=== PATIENT | female | born 1940 | race African-American/Black ===

== ENCOUNTER → 2017-03-04 | Outpatient (CLI) | payer MEDICARE, MEDICAID ==
--- NOTE | 2017-03-04 11:16 | RADIOLOGY REPORT (SQ) ---
EXAM DESCRIPTION: KUB COMPLETED DATE/TIME: 03/04/2017 11:05 am REASON FOR STUDY: CALCULUS OF KIDNEY N20.0 CALCULUS OF KIDNEY COMPARISON: 01/04/2016 NUMBER OF VIEWS: One view. TECHNIQUE: Supine radiographic image of the abdomen acquired. LIMITATIONS: None. FINDINGS: BOWEL GAS PATTERN: Normal bowel gas pattern. No dilated loops. CALCIFICATIONS: Calcifications overlie the left kidney, particularly the lower pole calices. No defi nite ureteral calculus is seen. SOFT TISSUES: No gross mass or suggestion of organomegaly. HARDWARE: None in the abdomen. BONES: Levoscoliosis and lumbar degenerative changes are present. OTHER: No other significant finding. IMPRESSION: Left nephrolithiasis with no evidence of ureteral calculus. Findings as described. TECHNICAL DOCUMENTATION: JOB ID: [id number] [email or web address]- All Rights Reserved
== END ==
LOC: OD 10:42
PROVIDERS: ATTEND Urology
DX: N20.0 Calculus of kidney (principal)
CPT/HCPCS: 74000

== ENCOUNTER 2017-08-01 16:51 | Inpatient (IN) | payer MEDICARE, MEDICAID ==
[2017-08-01] MEDS ORDERED: FUROSEMIDE INJ/PF 40 MG/4 ML SDV IV ONE (20:00)
[2017-08-01] MEDS ORDERED: IPRATROPIUM/ALBUTEROL 0.5-2.5 MG/3 ML AMPUL NEB PRN (20:20)
--- NOTE | 2017-08-01 20:20 | PDOC H&P ---
History of Present Illness Admission Date/PCP: 08/01/17 16:51 TAMIE DEL CASTILLO MD Patient complains of: Worsening leg swelling and difficulty with breathing History of Present Illness: RHETT HORAN is a 76 year old female patient known to my practice who presented to the office again today with complaint of worsening bilateral leg swelling and difficulty with breathing. Patient denied any chest pain but reported productive coughing of yellowish brown sputum, wheezing, fatigue, excessive daytime sleepiness, and snoring. Patient denied any fever or chills. She reported worsening of shortness of breath with exertion. She claimed stoppage of cigarette smoking few days ago. There is associated poor appetite and oral intake, running nose and sneezing, generalized aches and pain, and light headedness. Her initial evaluation in the office did revealed pulse oximetry on room air at 73%, HR 99/min with pain rating at 10/10. Also, patient appeared toxic and ill looking. In view of her recurrent office presentation and evaluation findings, she was advised hospitalization for further evaluation and management. Past Medical History Cardiac Medical History: Reports: Hyperlipidema, Hypertension Denies: Coronary Artery Disease - HIGH CHOLESTEROL, Myocardial Infarction Pulmonary Medical History: Reports: Chronic Obstructive Pulmonary Disease (COPD) Denies: Asthma, Bronchitis, Pneumonia Neurological Medical History: Denies: Seizures Musculoskeltal Medical History: Reports: Arthritis - OSTEO Hematology: Denies: Anemia Social History Smoking Status: Former Smoker Frequency of Alcohol Use: None Hx Recreational Drug Use: No Drugs: None Hx Prescription Drug Abuse: No - Advance Directive Resuscitation Status: Do Not Resuscitate - I had extensive discussion with patient at bedside in concert with family and nursing staff. Patient expressed wish to be a DNR status at this time. Family History Family History: Reviewed & Not Pertinent Parental Family History Reviewed: Yes Children Family History Reviewed: Yes Sibling(s) Family History Reviewed.: Yes Medication/Allergy Home Medications: Fluticasone/Vilanterol [Breo Ellipta 100-25 Mcg INH] 1 puff IH DAILY 08/01/17 Furosemide [Lasix 20 mg Tablet] 20 mg PO QAM 08/01/17 Oxybutynin Chloride [Ditropan 5 Mg Tablet] 5 mg PO BID 08/01/17 Allergies/Adverse Reactions: No Known Allergies Allergy (Verified 09/20/15 10:59) Review of Systems Constitutional: PRESENT: anorexia, fatigue, weakness Eyes: ABSENT: visual disturbances Ears: ABSENT: hearing changes Nose, Mouth, and Throat: ABSENT: as per HPI, headache(s), mouth pain, sore throat, vertigo, other Cardiovascular: PRESENT: dyspnea on exertion, edema Respiratory: PRESENT: cough, dyspnea, sputum Gastrointestinal: PRESENT: other - poor appetite and oral intake Genitourinary: ABSENT: dysuria, hematuria Musculoskeletal: ABSENT: joint swelling Integumentary: ABSENT: rash, wounds Neurological: PRESENT: dizziness - lightheadedness, weakness - generalized Psychiatric: ABSENT: anxiety, depression, homidical ideation, suicidal ideation Endocrine: ABSENT: cold intolerance, heat intolerance, polydipsia, polyuria Hematologic/Lymphatic: PRESENT: easy bruising Allergic/Immunologic: PRESENT: seasonal rhinorrhea Physical Exam Vital Signs: Intake & Output 07/31/17 08/01/17 08/02/17 06:59 06:59 06:59 Weight 60.9 kg General appearance: PRESENT: cooperative, disheveled - and acutely ill looking Head exam: PRESENT: atraumatic, normocephalic Eye exam: PRESENT: conjunctiva pink, EOMI, PERRLA. ABSENT: scleral icterus Mouth exam: PRESENT: dry mucosa Teeth exam: ABSENT: dental caries, dental tenderness, edentulous, poor dentation , other Throat exam: ABSENT: post pharyngeal erythema, tonsillar erythema, tonsillar exudate, tonsillogmegaly, other Neck exam: PRESENT: full ROM. ABSENT: carotid bruit, JVD, lymphadenopathy, thyromegaly Respiratory exam: PRESENT: accessory muscle use, decreased breath sounds - lower lung zone bilaterally, rhonchi, unlabored Cardiovascular exam: PRESENT: RRR. ABSENT: diastolic murmur, rubs, systolic murmur Pulses: PRESENT: normal dorsalis pedis pul, +2 pedal pulses bilateral Vascular exam: PRESENT: normal capillary refill. ABSENT: pallor GI/Abdominal exam: PRESENT: normal bowel sounds, soft. ABSENT: distended, guarding, mass, organolmegaly, rebound, tenderness Rectal exam: PRESENT: deferred Extremities exam: PRESENT: pedal edema - right >> left Musculoskeletal exam: PRESENT: deformity - multiple joints involvement with arthritis Neurological exam: PRESENT: alert, awake, oriented to person, oriented to place , oriented to time, oriented to situation, CN II-XII grossly intact. ABSENT: motor sensory deficit Psychiatric exam: PRESENT: appropriate affect, normal mood. ABSENT: homicidal ideation, suicidal ideation Skin exam: PRESENT: dry Assessment & Plan - Diagnosis (1) Acute systolic CHF (congestive heart failure) Is this a current diagnosis for this admission?: Yes Plan: See admitting attending physician orders. (2) COPD (chronic obstructive pulmonary disease) Qualifiers: COPD type: unspecified COPD Qualified Code(s): J44.9 - Chronic obstructive pulmonary disease, unspecified Is this a current diagnosis for this admission?: Yes Plan: See admitting attending physician orders. (3) Severe hypoxemia Is this a current diagnosis for this admission?: Yes Plan: See admitting attending physician orders. (4) HTN (hypertension) Qualifiers: Hypertension type: essential hypertension Qualified Code(s): I10 - Essential (primary) hypertension Is this a current diagnosis for this admission?: Yes Plan: See admitting attending physician orders. (5) HLD (hyperlipidemia) Qualifiers: Hyperlipidemia type: unspecified Qualified Code(s): E78.5 - Hyperlipidemia , unspecified Is this a current diagnosis for this admission?: Yes Plan: See admitting attending physician orders. (6) Osteoarthritis involving multiple joints on both sides of body Is this a current diagnosis for this admission?: Yes Plan: See admitting attending physician orders. - Time Time Spent: 50 to 70 Minutes Medications reviewed and adjusted accordingly: Yes Anticipated discharge: Home with Homehealth Within: Other - Inpatient Certification Based on my medical assessment, after consideration of the patient's comorbidities, presenting symptoms, or acuity I expect that the services needed warrant INPATIENT care.: Yes I certify that my determination is in accordance with my understanding of Medicare's requirements for reasonable and necessary INPATIENT services [42 CFR 412.3e].: Yes Medical Necessity: Need Close Monitoring Due to Risk of Patient Decompensation, Need For Continuous Telemetry Monitoring, Need for Nebulizer Therapy and Monitoring of Response, Need for IV Antibiotics, Risk of Complication if Not Cared For in Hospital Post Hospital Care: D/C Inspector [employer] Reconditioning Documentation - Plan Summary Plan Summary: See admitting attending physician orders.
[2017-08-01 20:24] LABS: ABSOLUTE LYMPHOCYTES (AUTO) 1.1 10^3/uL (0.5-4.7); ABSOLUTE MONOCYTES (AUTO) 0.4 10^3/uL (0.1-1.4); ABSOLUTE NEUT (AUTO) 6.3 10^3/uL (1.7-8.2); BASOPHILS % (AUTO) 0.4 % (0-2); EOSINOPHILS % (AUTO) 0.4 % (0-6); HEMATOCRIT 43.3 % (36.0-47.0); HEMOGLOBIN 14.4 g/dL (12.0-15.5); HGB HCT DIFFERENCE -0.1; LYMPHOCYTES % (AUTO) 14.4 % (13-45); MEAN CORPUSCULAR HEMOGLOBIN 28.4 pg (27.0-33.4); MEAN CORPUSCULAR HGB CONC 33.3 g/dL (32.0-36.0); MEAN CORPUSCULAR VOLUME 85 fl (80-97); MONOCYTES % (AUTO) 5.3 % (3-13); RED BLOOD COUNT 5.08 10^6/uL (3.72-5.28); RED CELL DISTRIBUTION WIDTH 19.9 % (11.5-14.0); SEGMENTED NEUTROPHILS % (AUTO) 79.5 % (42-78); WHITE BLOOD COUNT 7.9 10^3/uL (4.0-10.5)
[2017-08-01 20:46] LABS: ALANINE AMINOTRANSFERASE 31 U/L (9-52); ALBUMIN 3.1 g/dL (3.5-5.0); ALKALINE PHOSPHATASE 98 U/L (38-126); ANION GAP 12 (5-19); ASPARTATE AMINO TRANSFERASE 43 U/L (14-36); BILIRUBIN,DIRECT 1.1 mg/dL (0.0-0.4); BILIRUBIN,TOTAL 1.6 mg/dL (0.2-1.3); BLOOD UREA NITROGEN 17 mg/dL (7-20); CALCIUM 8.7 mg/dL (8.4-10.2); CARBON DIOXIDE 26 mmol/L (22-30); CHLORIDE 98 mmol/L (98-107); CREATINE KINASE 89 U/L (30-135); CREATININE RESULT 0.96 mg/dL (0.52-1.25); GLUCOSE 127 mg/dL (75-110); POTASSIUM 3.8 mmol/L (3.6-5.0); SODIUM 136.4 mmol/L (137-145); TOTAL PROTEIN 6.8 g/dL (6.3-8.2)
[2017-08-01 20:57] LABS: TROPONIN I 0.078 ng/mL
[2017-08-01] MEDS ORDERED: LIDOCAINE 2% INJ-PF (100 MG/5 ML) SYRINGE ONE (21:38)
--- NOTE | 2017-08-01 23:14 | EKG REPORT ---
SEVERITY:- ABNORMAL ECG - SINUS RHYTHM PROBABLE RIGHT VENTRICULAR HYPERTROPHY NONSPECIFIC ST-T CHANGES- INFERIOR LEADS : Confirmed by: Stevie Olivares MD 01-Aug-2017 23:14:08
[2017-08-02] MEDS ORDERED: LIDOCAINE 2% INJ-PF (100 MG/5 ML) SYRINGE ONE (00:27)
[2017-08-02] MEDS: METHYLPREDNISOLONE INJ 125 MG/2 ML SDV IV SCH ×4 (01:05→22:20)
--- NOTE | 2017-08-02 01:36 | RADIOLOGY REPORT (SQ) ---
EXAM DESCRIPTION: CHEST SINGLE VIEW COMPLETED DATE/TIME: 08/02/2017 1:04 am REASON FOR STUDY: POSSIBLE PULM EMBOLISM. Central line placement. COMPARISON: Chest x-ray 09/07/2013. EXAM PARAMETERS: NUMBER OF VIEWS: One view. TECHNIQUE: Single frontal radiographic view of the chest acquired. RADIATION DOSE: NA LIMITATIONS: None. FINDINGS: LUNGS AND PLEURA: There are small bilateral pleural effusions and bibasilar airspace opaci ties, right more than left. No pneumothorax. Hyperlucent lungs, suggestive of emphysema. MEDIASTINUM AND HILAR STRUCTURES: No masses. Contour normal. HEART AND VASCULAR STRUCTURES: The heart is enlarged. There is central vascular congestion. BONES: Degenerative changes in the spine. HARDWARE: Right IJ central line with the tip overlying the region of the SVC. IMPRESSION: No pneumothorax status post central line placement. Cardiomegaly and central vascular congestion. Small bilateral pleural effusions and bibasilar airspace opacities, may represent atelectasis or pneu monia. Emphysema. TECHNICAL DOCUMENTATION: JOB ID: [id number] [employer]- All Rights Reserved
[2017-08-02] MEDS: LEVOFLOXACIN 500 MG/D5W RTU 500 MG/100 ML RTUPB IV SCH ×2 (01:49→23:25)
--- NOTE | 2017-08-02 02:33 | OPERATIVE REPORT E ---
Operative Report NAME: RHETT HORAN : 1940 AGE: 76Y DATE OF SURGERY: 08/02/2017 ROOM: 431 PREOPERATIVE DIAGNOSIS: Poor peripheral veins for IV access and needed a central line. POSTOPERATIVE DIAGNOSIS: Poor peripheral veins for IV access and needed a central line. PROCEDURE PERFORMED: Placement of right internal jugular vein triple lumen catheter. SURGEON: GURINDER CAMACHO M.D. ANESTHESIA: Local. INDICATION: This is a 76-year-old female with severe COPD and noted to have poor veins for IV access. DESCRIPTION OF PROCEDURE: Patient was placed in Trendelenburg position, and the right neck prepped and draped in the usual sterile fashion. With the use of ultrasound guidance, the right internal jugular vein was then identified. Local anesthesia was then infiltrated on the skin over the internal jugular vein. The right internal jugular vein was then punctured and guidewire passed through the needle, close to the area of superior vena cava. The needle was removed and the puncture site dilated, and a triple lumen catheter inserted through the guidewire in the direction of the superior vena cava to a distance of about 15 cm. Three ports of the catheter were then irrigated nicely with saline and sprayed blood easily. Next, the catheter was then anchored to the skin with 3-0 silk, and Biopatch placed at the insertion site, and a transparent dressing placed over the Biopatch and catheter. A chest x-ray was then obtained and noted the catheter is right into the area of the superior vena cava with no evidence of pneumothorax. The patient tolerated the procedure well. DICTATING PHYSICIAN: GURINDER CAMACHO M.D. [id number] PHY#: [id number] ID: [id number] JOB#: [id number] ACCT: [id number] cc:GURINDER CAMACHO M.D. >
[2017-08-02 03:02] LABS: CREATINE KINASE MB 2.38 ng/mL (<4.55); TROPONIN I 0.082 ng/mL
--- NOTE | 2017-08-02 04:24 | RADIOLOGY REPORT (SQ) ---
EXAM DESCRIPTION: CTA CHEST COMPLETED DATE/TIME: 08/02/2017 4:00 am REASON FOR STUDY: Shortness of breath COMPARISON: Chest x-ray 08/02/2017. TECHNIQUE: CT scan of the chest performed using helical scanning technique with dynamic intravenous contrast injection. Images reviewed with lung, soft tissue and bone windows. Reconstructed coronal and sagittal MPR images reviewed. Additional 3 dimensional post-processing performed to develop Maximal Intensity Projection images (VT P). All images stored on PACS. All CT scanners at this facility use dose modulation, iterative reconstruction, and/or weight based d osing when appropriate to reduce radiation dose to as low as reasonably achievable (ALARA). [facility]: Dose Right [facility]: CareDose [facility]: Dose Right [facility]: Teradose 4D [facility]: Smart [employer] CONTRAST TYPE AND DOSE: contrast/concentration: Isovue 370.00 mg/ml; Total Contrast Delivered: 100.0 ml; Total Saline Delivered: 60.0 ml Contrast bolus optimized for the pulmonary arteries. Not diagnostic for the aorta. RENAL FUNCTION: Creatinine 0.96 RADIATION DOSE: . LIMITATIONS: The patient was unable to raise her arms for the exam. There is motion artifact. FINDINGS: LUNGS AND PLEURA: Heterogeneous mass at the medial right lower lobe measuring 3.7 x 3.7 cm . There is a moderate right-sided pleural effusion and small left-sided pleural effusion. There are bibasilar airspace opacities. Bilateral emphysematous changes are noted. AORTA AND GREAT VESSELS: No thoracic aortic aneurysm. Contrast bolus not optimized for the aorta. I rregular ulcerative plaque in the descending thoracic aorta. The main pulmonary artery is dilated. HEART: No pericardial effusion. The heart is enlarged. Coronary arteries calcifications are noted. PULMONARY ARTERIES: No emboli visualized in the main pulmonary arteries or the segmental branches. HILAR AND MEDIASTINAL STRUCTURES: Right hilar lymph node measuring 17 mm in short axis. Right paratr acheal lymph node measuring 12 mm in short axis. HARDWARE: Right IJ central line with the tip at the SVC. Small amount of subcutaneous emphysema lio cent to the insertion site in the right lower neck. UPPER ABDOMEN: There is reflux of intravenous contrast into the IVC and the hepatic veins. Small eloisa unt of ascites in the visualized upper abdomen. Limited exam. THYROID AND OTHER SOFT TISSUES: The visualized thyroid gland is unremarkable. There is diffuse subcu taneous edema. BONES: Multilevel degenerative changes in the spine. 3D MIPS: Confirm above findings. IMPRESSION: 1. No pulmonary emboli. 2. Cardiomegaly. Dilated main pulmonary artery, may be seen with pulmonary arterial hypertension. Reflux of intravenous contrast into the IVC and the hepatic veins, suggestive of right heart failure. Irregular ulcerative plaque in the descending thoracic aorta. 3. Heterogeneous mass at the right lower lobe, worrisome for malignancy. Right hilar and mediastina l adenopathy. Further evaluation with PET/ CT recommended. 4. Bilateral pleural effusions, right more than left. 5. Bilateral airspace opacities, may represent atelectasis or pneumonia. 6. Emphysema. 7. Small abdominal ascites. Diffuse subcutaneous edema. COMMENT: Quality ID # [id number]: Final reports with documentation of one or more dose reduction techniques (e.g., Automated exposure control, adjustment of the mA and/or kV according to patient size, use of iterative reconstruction technique) TECHNICAL DOCUMENTATION: JOB ID: [id number] [place]-[id number] 2010 [employer]- All Rights Reserved
[2017-08-02] MEDS: LANSOPRAZOLE 30 MG TAB.RAP.DR PO SCH (05:31)
[2017-08-02] MEDS ORDERED: (PENDING PHARMACY ID) (Fluticasone/Vilanterol [Breo Ellipta 100-25 Mcg Inh] 1 PUFF) IH SCH (10:00)
[2017-08-02] MEDS ORDERED: ENOXAPARIN SODIUM INJ 40 MG/0.4 ML DISP.SYRIN SUBCUT SCH (10:00)
[2017-08-02 10:23] LABS: CREATINE KINASE MB 2.77 ng/mL (<4.55); TROPONIN I 0.067 ng/mL
[2017-08-02] MEDS: FUROSEMIDE 20 MG TABLET PO SCH (11:40)
[2017-08-02] MEDS: OXYBUTYNIN CHLORIDE 5 MG TABLET PO SCH ×2 (11:42→18:57)
--- NOTE | 2017-08-02 16:09 | XCELERA REPORT ---
[address] [address] Transthoracic Echocardiogram Report Name: RHETT HORAN Age: 76 yrs Gender: Female : 1940 Patient Status: Inpatient Patient Location: [address] [place] [address] Study Date: 08/02/2017 02:05 PM Height: 62 in Weight: 134 lb BSA: 1.6 m2 Procedure: A two-dimensional transthoracic echocardiogram with color flow and Doppler was performed. Study Quality: Fair. Reason For Study: SOB, Leg swelling ( EDEMA} History: SOB, Leg swelling ( EDEMA}. Ordering Physician: TAMIE DEL CASTILLO Performed By: Yocasta Mcbride Interpretation Summary The left ventricle is normal in size. There is mild concentric left ventricular hypertrophy. LV EF is 60% Left ventricular systolic function is normal. Doppler measurements suggest normal left ventricular diastolic function The left ventricular wall motion is normal. There is no thrombus. The right ventricle is moderate to severely dilated. The right ventricular systolic function is moderate to severely reduced. There is no mitral valve stenosis. There is no mitral regurgitation noted. There is no evidence of mitral valve prolapse. There is no aortic valve stenosis There is no LVOT obstruction. No aortic regurgitation is present. There is no tricuspid stenosis. There is a severe amount of tricuspid regurgitation There is servere pulmonary hypertension by echo RVSP is 100 to 105 mm of Hg ,with RA mean of 10 to 15. There is no pulmonic valvular stenosis. There is a trace amount of pulmonic regurgitation Trace pericardial effusion behind RA. MMode/2D Measurements & Calculations RVDd: 3.6 cm LVIDd: 2.7 cm FS: 32.4 % Ao root diam: 3.1 cm IVSd: 1.2 cm LVIDs: 1.8 cm EDV(Teich): 26.0 ml LVPWd: 1.2 cm ESV(Teich): 9.7 ml Ao root area: 7.6 cm2 EF(Teich): 62.8 % LA dimension: 2.4 cm Doppler Measurements & Calculations MV E max libra: MV P1/2t max libra: Ao V2 max: LV V1 max P.5 cm/sec 75.5 cm/sec 107.2 cm/sec 3.9 mmHg MV A max libra: MV P1/2t: 35.5 msec Ao max PG: LV V1 max: 40.5 cm/sec 4.6 mmHg 98.2 cm/sec MV E/A: 1.8 MVA(P1/2t): 6.2 cm2 MV dec slope: 622.6 cm/sec2 PA V2 max: TR max libra: 64.2 cm/sec 472.5 cm/sec PA max PG: TR max P.3 mmHg 1.6 mmHg Left Ventricle The left ventricle is normal in size. There is mild concentric left ventricular hypertrophy. LV EF is 60%. Left ventricular systolic function is normal. Doppler measurements suggest normal left ventricular diastolic function. The left ventricular wall motion is normal. There is no thrombus. Right Ventricle The right ventricle is moderate to severely dilated. The right ventricular systolic function is moderate to severely reduced. Atria The right atrium is moderate to severely dilated. The left atrial size is normal. Mitral Valve There is no evidence of mitral valve prolapse. There is no vegetation seen on the mitral valve. There is no mitral valve stenosis. There is no mitral regurgitation noted. Aortic Valve There is no aortic valvular vegetation. There is no aortic valve stenosis. There is no LVOT obstruction. No aortic regurgitation is present. Tricuspid Valve There is no tricuspid stenosis. There is a severe amount of tricuspid regurgitation. There is servere pulmonary hypertension by echo. RVSP is 100 to 105 mm of Hg ,with RA mean of 10 to 15. Pulmonic Valve There is no pulmonic valvular stenosis. There is a trace amount of pulmonic regurgitation. Great Vessels The aortic root is not well visualized but is probably normal size. Effusions Trace pericardial effusion behind RA. : TAMIE DEL CASTILLO > Becki Villasenor
--- NOTE | 2017-08-02 18:12 | PDOC PROGRESS REPORT ---
Subjective Progress Note for:: 08/02/17 Subjective:: Patient reported improvement in continence but continue to experience shortness of breath with low 80"s pulse oximetry reading on supplemental oxygen. Denied chest pain. No abdominal; pain, nausea, or vomiting. Appetite and oral intake remain poor. No fever or chills. Reason For Visit: CHF WITH HYPOXEMIA Physical Exam Vital Signs: Temp Pulse Resp BP Pulse Ox 97.3 F 92 19 95/57 L 90 L 08/02/17 16:04 08/02/17 16:04 08/02/17 16:04 08/02/17 16:04 08/02/17 16:04 Intake & Output 08/01/17 08/02/17 08/03/17 06:59 06:59 06:59 Intake Total 350 480 Balance 350 480 Weight 60.9 kg General appearance: PRESENT: cooperative, mild distress Head exam: PRESENT: atraumatic, normocephalic Eye exam: PRESENT: conjunctiva pink, EOMI, PERRLA. ABSENT: scleral icterus Respiratory exam: PRESENT: crackles - scattered bilaterally, decreased breath sounds - at lung bases Cardiovascular exam: PRESENT: RRR. ABSENT: diastolic murmur, rubs, systolic murmur Vascular exam: PRESENT: normal capillary refill. ABSENT: pallor GI/Abdominal exam: PRESENT: normal bowel sounds, soft. ABSENT: distended, guarding, mass, organolmegaly, rebound, tenderness Rectal exam: PRESENT: deferred Extremities exam: PRESENT: pedal edema - right >> left with some degree of comparative improvement. Musculoskeletal exam: PRESENT: deformity - related to multiple jpint involvement with artritis Neurological exam: PRESENT: alert, awake, oriented to person, oriented to place , oriented to time, oriented to situation, CN II-XII grossly intact. ABSENT: motor sensory deficit Psychiatric exam: PRESENT: appropriate affect, normal mood. ABSENT: homicidal ideation, suicidal ideation Skin exam: PRESENT: dry, intact, warm. ABSENT: cyanosis, rash Results Laboratory Results: 08/01/17 20:15 08/01/17 20:15 08/01/17 08/01/17 20:15 20:15 WBC 7.9 RBC 5.08 Hgb 14.4 Hct 43.3 MCV 85 MCH 28.4 MCHC 33.3 RDW 19.9 H Plt Count 184 Seg Neutrophils % 79.5 H Lymphocytes % 14.4 Monocytes % 5.3 Eosinophils % 0.4 Basophils % 0.4 Absolute Neutrophils 6.3 Absolute Lymphocytes 1.1 Absolute Monocytes 0.4 Absolute Eosinophils 0.0 Absolute Basophils 0.0 Sodium 136.4 L Potassium 3.8 Chloride 98 Carbon Dioxide 26 Anion Gap 12 BUN 17 Creatinine 0.96 Est GFR ( Amer) > 60 Est GFR (Non-Af Amer) 57 L Glucose 127 H Calcium 8.7 Total Bilirubin 1.6 H AST 43 H ALT 31 Alkaline Phosphatase 98 Total Protein 6.8 Albumin 3.1 L 08/01/17 08/01/17 08/01/17 20:15 20:15 20:15 Creatine Kinase 89 CK-MB (CK-2) 3.00 Troponin I 0.078 NT-Pro-B Natriuret Pep 31398 H 08/02/17 08/02/17 08/02/17 02:24 02:24 08:56 Creatine Kinase 77 83 CK-MB (CK-2) 2.38 Troponin I 0.082 NT-Pro-B Natriuret Pep 08/02/17 08:56 Creatine Kinase CK-MB (CK-2) 2.77 Troponin I 0.067 NT-Pro-B Natriuret Pep Impressions: Chest X-Ray 08/02/17 00:00 IMPRESSION: No pneumothorax status post central line placement. Cardiomegaly and central vascular congestion. Small bilateral pleural effusions and bibasilar airspace opacities, may represent atelectasis or pneumonia. Emphysema. Chest/Abdomen CTA 08/02/17 00:00 IMPRESSION: 1. No pulmonary emboli. 2. Cardiomegaly. Dilated main pulmonary artery, may be seen with pulmonary arterial hypertension. Reflux of intravenous contrast into the IVC and the hepatic veins, suggestive of right heart failure. Irregular ulcerative plaque in the descending thoracic aorta. 3. Heterogeneous mass at the right lower lobe, worrisome for malignancy. Right hilar and mediastinal adenopathy. Further evaluation with PET/ CT recommended. 4. Bilateral pleural effusions, right more than left. 5. Bilateral airspace opacities, may represent atelectasis or pneumonia. 6. Emphysema. 7. Small abdominal ascites. Diffuse subcutaneous edema. Assessment & Plan - Diagnosis (1) Acute systolic CHF (congestive heart failure) Is this a current diagnosis for this admission?: Yes (2) COPD (chronic obstructive pulmonary disease) Qualifiers: COPD type: unspecified COPD Qualified Code(s): J44.9 - Chronic obstructive pulmonary disease, unspecified Is this a current diagnosis for this admission?: Yes (3) Severe hypoxemia Is this a current diagnosis for this admission?: Yes (4) HTN (hypertension) Qualifiers: Hypertension type: essential hypertension Qualified Code(s): I10 - Essential (primary) hypertension Is this a current diagnosis for this admission?: Yes (5) HLD (hyperlipidemia) Qualifiers: Hyperlipidemia type: unspecified Qualified Code(s): E78.5 - Hyperlipidemia , unspecified Is this a current diagnosis for this admission?: Yes (6) Osteoarthritis involving multiple joints on both sides of body Is this a current diagnosis for this admission?: Yes (7) Mass of lower lobe of right lung Is this a current diagnosis for this admission?: Yes Plan: See attending physician orders. (8) Bilateral pleural effusion Is this a current diagnosis for this admission?: Yes Plan: See attending physician orders. - Time Time Spent with patient: 35 or more minutes Medications reviewed and adjusted accordingly: Yes Anticipated discharge: Other Within: Other - Inpatient Certification Based on my medical assessment, after consideration of the patient's comorbidities, presenting symptoms, or acuity I expect that the services needed warrant INPATIENT care.: Yes I certify that my determination is in accordance with my understanding of Medicare's requirements for reasonable and necessary INPATIENT services [42 CFR 412.3e].: Yes Medical Necessity: Need Close Monitoring Due to Risk of Patient Decompensation, Need For Continuous Telemetry Monitoring, Need for Nebulizer Therapy and Monitoring of Response, Need for IV Antibiotics, Risk of Complication if Not Cared For in Hospital Post Hospital Care: D/C Senior Private Client Advisor Documentation - Plan Summary Plan Summary: I had extensive discussion with patient regarding CTA chest findings and possibility of lung cancer in view of cigarette smoking history and advance age. Meanwhile, I will add IV Cefepime to her antibiotic therapy. I will request for right sided thoracentesis with fluid chemistry analysis, culture and cytology. Encouraged compliance with supplemental oxygen usage. Patient remain on DNR status.
[2017-08-02] MEDS: CEFEPIME 1 GM/D5W RTU 1 GM/50 ML RTUPB IV SCH (22:20)
[2017-08-03] MEDS: METHYLPREDNISOLONE INJ 125 MG/2 ML SDV IV SCH ×3 (05:23→21:14)
[2017-08-03] MEDS: LANSOPRAZOLE 30 MG TAB.RAP.DR PO SCH (05:23)
[2017-08-03 06:01] LABS: ABSOLUTE LYMPHOCYTES (AUTO) 0.6 10^3/uL (0.5-4.7); ABSOLUTE MONOCYTES (AUTO) 0.3 10^3/uL (0.1-1.4); ABSOLUTE NEUT (AUTO) 5.1 10^3/uL (1.7-8.2); BASOPHILS % (AUTO) 0.1 % (0-2); HEMATOCRIT 40.3 % (36.0-47.0); HEMOGLOBIN 13.3 g/dL (12.0-15.5); HGB HCT DIFFERENCE -0.4; LYMPHOCYTES % (AUTO) 10.4 % (13-45); MEAN CORPUSCULAR HGB CONC 32.9 g/dL (32.0-36.0); MEAN CORPUSCULAR VOLUME 85 fl (80-97); MONOCYTES % (AUTO) 4.7 % (3-13); RED BLOOD COUNT 4.74 10^6/uL (3.72-5.28); RED CELL DISTRIBUTION WIDTH 19.9 % (11.5-14.0); SEGMENTED NEUTROPHILS % (AUTO) 84.8 % (42-78)
[2017-08-03 06:05] LABS: PROTHROMBIN TIME 19.2 SEC (11.4-15.4)
[2017-08-03 06:26] LABS: ALANINE AMINOTRANSFERASE 32 U/L (9-52); ALKALINE PHOSPHATASE 71 U/L (38-126); ANION GAP 11 (5-19); ASPARTATE AMINO TRANSFERASE 42 U/L (14-36); BILIRUBIN,DIRECT 1.1 mg/dL (0.0-0.4); BILIRUBIN,TOTAL 1.6 mg/dL (0.2-1.3); BLOOD UREA NITROGEN 23 mg/dL (7-20); CALCIUM 8.6 mg/dL (8.4-10.2); CARBON DIOXIDE 27 mmol/L (22-30); CHLORIDE 97 mmol/L (98-107); CREATININE RESULT 1.28 mg/dL (0.52-1.25); GLUCOSE 129 mg/dL (75-110); POTASSIUM 4.1 mmol/L (3.6-5.0); SODIUM 135.3 mmol/L (137-145); TOTAL PROTEIN 6.5 g/dL (6.3-8.2)
[2017-08-03] MEDS: FUROSEMIDE 20 MG TABLET PO SCH (07:37)
[2017-08-03] MEDS: OXYBUTYNIN CHLORIDE 5 MG TABLET PO SCH ×2 (09:07→17:43)
[2017-08-03] MEDS: CEFEPIME 1 GM/D5W RTU 1 GM/50 ML RTUPB IV SCH ×2 (09:07→21:14)
[2017-08-03] MEDS ORDERED: LIDOCAINE 1% INJ-PF (10 MG/ML) 30 ML SDV ONE (12:07)
--- NOTE | 2017-08-03 12:45 | RADIOLOGY REPORT (SQ) ---
EXAM DESCRIPTION: U/S THORACENTESIS WITH IMAGING COMPLETED DATE/TIME: 08/03/2017 12:33 pm REASON FOR STUDY: Bial. pleural effusion with hypoxia (RT. SIDE) COMPARISON: None. LIMITATIONS: None. PROCEDURE: Procedure, risks, benefit, and alternative explained to patient who then gave written con sent. The posterior right chest wall was marked using ultrasound guidance. A time-out was called fo r correct marking verification. Chest prepped and draped using sterile technique. Local anesthesia a chieved using 5 ml of 1% lidocaine injection. A 6fr Safe-T- Centesis set was introduced into the rig ht pleural space. Fluid was aspirated. The catheter was removed and the entry site was covered with sterile bandage. No immediate complications noted. Images acquired during the procedure were stored on PACS. FINDINGS: ENTRY SITE: Right posterior chest wall FLUID VOLUME: 500 cc FLUID ANALYSIS: [place] color OTHER: Fluid sent to the lab for testing. IMPRESSION: SUCCESSFUL THORACENTESIS USING ULTRASOUND GUIDANCE. COMMENT: Patient medication list reviewed: Yes- Quality ID# [id number]:Eligible professional attests to doc umenting in the medical record they obtained, updated, or reviewed the patient's current medications. Quality ID #[id number]: Final reports for procedures using fluoroscopy that document radiation exposure georgina laurence, or exposure time and number of fluorographic images (if radiation exposure indices are not avail able) TECHNICAL DOCUMENTATION: JOB ID: [id number] [employer]- All Rights Reserved
--- NOTE | 2017-08-03 13:14 | RADIOLOGY REPORT (SQ) ---
EXAM DESCRIPTION: CHEST SINGLE VIEW COMPLETED DATE/TIME: 08/03/2017 12:52 pm REASON FOR STUDY: RT THORA COMPARISON: CT angio chest 08/02/2017 AP chest 08/02/2017 EXAM PARAMETERS: NUMBER OF VIEWS: One view. TECHNIQUE: Single frontal radiographic view of the chest acquired. RADIATION DOSE: NA LIMITATIONS: None. FINDINGS: LUNGS AND PLEURA: Mild bibasilar airspace disease likely atelectasis. No pleural effusions or pneumothorax. MEDIASTINUM AND HILAR STRUCTURES: No masses. Contour normal. HEART AND VASCULAR STRUCTURES: No cardiomegaly. Prominent central pulmonary arteries. BONES: Osteoporotic HARDWARE: Right jugular central line has been pulled back, the tip is still in the superior vena cava . OTHER: No other significant finding. IMPRESSION: Right jugular central line has been pulled back, tip of the catheter is in the superior vena cava. Post right thoracentesis. No pneumothorax. Bibasilar atelectasis. TECHNICAL DOCUMENTATION: JOB ID: [id number] [employer]- All Rights Reserved
[2017-08-03 14:20] LABS: FLUID TYPE PLEURAL; STAIN REACTIVITY CHECK ACCEPTABLE
[2017-08-03 14:21] LABS: FLUID APPEARANCE CLOUDY; FLUID RBC DILUENT USED SALINE; FLUID RBC DILUTION FACTOR 20; FLUID RBC SIDE 1 126; FLUID RBC SIDE 2 112; TOTAL RBC SQUARES COUNTED FLD 50
--- NOTE | 2017-08-03 18:05 | PDOC PROGRESS REPORT ---
Subjective Progress Note for:: 08/03/17 Subjective:: She was seen by the bedside, she has right pleural effusion with the mass in the lung suspicious for neoplasm, she had thoracentesis done today over 500 cc of pleural fluid was collected, specimen sent for studies Reason For Visit: CHF WITH HYPOXEMIA Physical Exam Vital Signs: Temp Pulse Resp BP Pulse Ox 97.3 F 87 16 110/66 96 08/03/17 15:14 08/03/17 15:14 08/03/17 15:14 08/03/17 15:14 08/03/17 15:14 Intake & Output 08/02/17 08/03/17 08/04/17 06:59 06:59 06:59 Intake Total 350 877 280 Output Total 200 Balance 350 877 80 Weight 60.9 kg General appearance: PRESENT: mild distress Head exam: PRESENT: atraumatic, normocephalic Eye exam: PRESENT: PERRLA. ABSENT: scleral icterus Ear exam: PRESENT: normal external ear exam Mouth exam: PRESENT: moist, tongue midline Neck exam: PRESENT: full ROM Respiratory exam: PRESENT: crackles, rhonchi Cardiovascular exam: PRESENT: RRR, +S1, +S2 Vascular exam: PRESENT: normal capillary refill GI/Abdominal exam: PRESENT: normal bowel sounds, soft Rectal exam: PRESENT: deferred Neurological exam: PRESENT: alert, awake, oriented to person, oriented to place , oriented to time, oriented to situation, CN II-XII grossly intact Psychiatric exam: PRESENT: appropriate affect, normal mood Skin exam: PRESENT: dry, intact, warm. ABSENT: cyanosis, rash Results Laboratory Results: 08/03/17 05:53 08/03/17 05:53 08/03/17 08/03/17 08/03/17 05:53 05:53 12:10 WBC 6.0 RBC 4.74 Hgb 13.3 Hct 40.3 MCV 85 MCH 28.0 MCHC 32.9 RDW 19.9 H Plt Count 173 Seg Neutrophils % 84.8 H Lymphocytes % 10.4 L Monocytes % 4.7 Eosinophils % 0.0 Basophils % 0.1 Absolute Neutrophils 5.1 Absolute Lymphocytes 0.6 Absolute Monocytes 0.3 Absolute Eosinophils 0.0 Absolute Basophils 0.0 Sodium 135.3 L Potassium 4.1 Chloride 97 L Carbon Dioxide 27 Anion Gap 11 BUN 23 H Creatinine 1.28 H Est GFR ( Amer) 49 L Est GFR (Non-Af Amer) 41 L Glucose 129 H Calcium 8.6 Total Bilirubin 1.6 H AST 42 H ALT 32 Alkaline Phosphatase 71 Total Protein 6.5 Albumin 3.0 L Fluid Type PLEURAL Fluid Source LUNG Fluid Color RED Fluid Appearance CLOUDY Fluid Viscosity LIQUID Fluid WBC 122 Fluid RBC 16822 08/01/17 08/01/17 08/01/17 20:15 20:15 20:15 Creatine Kinase 89 CK-MB (CK-2) 3.00 Troponin I 0.078 NT-Pro-B Natriuret Pep 66469 H 08/02/17 08/02/17 08/02/17 02:24 02:24 08:56 Creatine Kinase 77 83 CK-MB (CK-2) 2.38 Troponin I 0.082 NT-Pro-B Natriuret Pep 08/02/17 08:56 Creatine Kinase CK-MB (CK-2) 2.77 Troponin I 0.067 NT-Pro-B Natriuret Pep Impressions: Chest/Abdomen CTA 08/02/17 00:00 IMPRESSION: 1. No pulmonary emboli. 2. Cardiomegaly. Dilated main pulmonary artery, may be seen with pulmonary arterial hypertension. Reflux of intravenous contrast into the IVC and the hepatic veins, suggestive of right heart failure. Irregular ulcerative plaque in the descending thoracic aorta. 3. Heterogeneous mass at the right lower lobe, worrisome for malignancy. Right hilar and mediastinal adenopathy. Further evaluation with PET/ CT recommended. 4. Bilateral pleural effusions, right more than left. 5. Bilateral airspace opacities, may represent atelectasis or pneumonia. 6. Emphysema. 7. Small abdominal ascites. Diffuse subcutaneous edema. Thoracentesis Ultrasound 08/02/17 18:14 IMPRESSION: SUCCESSFUL THORACENTESIS USING ULTRASOUND GUIDANCE. Assessment & Plan - Diagnosis (1) Acute systolic CHF (congestive heart failure) Is this a current diagnosis for this admission?: Yes (2) COPD (chronic obstructive pulmonary disease) Qualifiers: COPD type: unspecified COPD Qualified Code(s): J44.9 - Chronic obstructive pulmonary disease, unspecified Is this a current diagnosis for this admission?: Yes (3) Severe hypoxemia Is this a current diagnosis for this admission?: Yes (4) HTN (hypertension) Qualifiers: Hypertension type: essential hypertension Qualified Code(s): I10 - Essential (primary) hypertension Is this a current diagnosis for this admission?: Yes (5) HLD (hyperlipidemia) Qualifiers: Hyperlipidemia type: unspecified Qualified Code(s): E78.5 - Hyperlipidemia , unspecified Is this a current diagnosis for this admission?: Yes (6) Osteoarthritis involving multiple joints on both sides of body Is this a current diagnosis for this admission?: Yes (7) Mass of lower lobe of right lung Is this a current diagnosis for this admission?: Yes (8) Bilateral pleural effusion Is this a current diagnosis for this admission?: Yes - Plan Summary Plan Summary: Continue present treatment
--- NOTE | 2017-08-03 22:11 | RADIOLOGY REPORT (SQ) ---
EXAM DESCRIPTION: CHEST SINGLE VIEW COMPLETED DATE/TIME: 08/03/2017 2:42 pm REASON FOR STUDY: 2 S/P RT THORA COMPARISON: 08/03/2017 and 08/02/2017 EXAM PARAMETERS: NUMBER OF VIEWS: One view. TECHNIQUE: Single frontal radiographic view of the chest acquired. RADIATION DOSE: NA LIMITATIONS: None. FINDINGS: LUNGS AND PLEURA: Persistent bibasilar atelectasis. No evidence of re- accumulation of ex trapleural fluid. No new focal consolidation. Pneumothorax. MEDIASTINUM AND HILAR STRUCTURES: No masses. Contour normal. HEART AND VASCULAR STRUCTURES: Stable cardiomediastinal silhouette. BONES: No acute findings. HARDWARE: The right cervical vascular access catheter terminates in the region of the superior vena c jennifer. OTHER: No other significant finding. IMPRESSION: 1. Stable central vascular access catheter. 2. Status post thoracentesis without evidence of re- accumulation or pneumothorax. TECHNICAL DOCUMENTATION: JOB ID: [id number] [employer]- All Rights Reserved
[2017-08-03] MEDS: LEVOFLOXACIN 500 MG/D5W RTU 500 MG/100 ML RTUPB IV SCH (22:26)
[2017-08-04] MEDS: LANSOPRAZOLE 30 MG TAB.RAP.DR PO SCH (05:18)
[2017-08-04] MEDS: METHYLPREDNISOLONE INJ 125 MG/2 ML SDV IV SCH ×3 (05:24→21:28)
[2017-08-04] MEDS: FUROSEMIDE 20 MG TABLET PO SCH (08:21)
[2017-08-04] MEDS: CEFEPIME 1 GM/D5W RTU 1 GM/50 ML RTUPB IV SCH ×2 (11:10→22:53)
[2017-08-04] MEDS: OXYBUTYNIN CHLORIDE 5 MG TABLET PO SCH ×2 (11:10→17:08)
[2017-08-04] MEDS: ENOXAPARIN SODIUM INJ 40 MG/0.4 ML DISP.SYRIN SUBCUT SCH (11:11)
--- NOTE | 2017-08-04 13:51 | PDOC PROGRESS REPORT ---
Subjective Progress Note for:: 08/04/17 Subjective:: Patient is seen by the bedside, she is presently on 100% nonrebreather, and that is probably too much oxygen for COPD patients, she is somewhat lethargic, the oxygen will be reduced to 2 L nasal cannula and support breathing with BiPAP Reason For Visit: CHF WITH HYPOXEMIA Physical Exam Vital Signs: Temp Pulse Resp BP Pulse Ox 97.3 F 85 24 H 125/88 H 96 08/04/17 11:27 08/04/17 11:27 08/04/17 11:27 08/04/17 11:27 08/04/17 11:27 Intake & Output 08/03/17 08/04/17 08/05/17 06:59 06:59 06:59 Intake Total 877 580 Output Total 200 Balance 877 380 Weight 62.2 kg General appearance: PRESENT: severe distress Eye exam: PRESENT: PERRLA Respiratory exam: PRESENT: crackles Cardiovascular exam: PRESENT: +S1, +S2 GI/Abdominal exam: PRESENT: soft Neurological exam: PRESENT: altered Results Laboratory Results: 08/03/17 05:53 08/03/17 05:53 08/03/17 12:10 Fluid Type PLEURAL Fluid Source LUNG Fluid Color RED Fluid Appearance CLOUDY Fluid Viscosity LIQUID Fluid WBC 122 Fluid RBC 27930 08/01/17 08/01/17 08/01/17 20:15 20:15 20:15 Creatine Kinase 89 CK-MB (CK-2) 3.00 Troponin I 0.078 NT-Pro-B Natriuret Pep 40553 H 08/02/17 08/02/17 08/02/17 02:24 02:24 08:56 Creatine Kinase 77 83 CK-MB (CK-2) 2.38 Troponin I 0.082 NT-Pro-B Natriuret Pep 08/02/17 08:56 Creatine Kinase CK-MB (CK-2) 2.77 Troponin I 0.067 NT-Pro-B Natriuret Pep Impressions: Chest/Abdomen CTA 08/02/17 00:00 IMPRESSION: 1. No pulmonary emboli. 2. Cardiomegaly. Dilated main pulmonary artery, may be seen with pulmonary arterial hypertension. Reflux of intravenous contrast into the IVC and the hepatic veins, suggestive of right heart failure. Irregular ulcerative plaque in the descending thoracic aorta. 3. Heterogeneous mass at the right lower lobe, worrisome for malignancy. Right hilar and mediastinal adenopathy. Further evaluation with PET/ CT recommended. 4. Bilateral pleural effusions, right more than left. 5. Bilateral airspace opacities, may represent atelectasis or pneumonia. 6. Emphysema. 7. Small abdominal ascites. Diffuse subcutaneous edema. Thoracentesis Ultrasound 08/02/17 18:14 IMPRESSION: SUCCESSFUL THORACENTESIS USING ULTRASOUND GUIDANCE. Chest X-Ray 08/03/17 14:25 IMPRESSION: 1. Stable central vascular access catheter. 2. Status post thoracentesis without evidence of re- accumulation or pneumothorax. Assessment & Plan - Diagnosis (1) Acute systolic CHF (congestive heart failure) Is this a current diagnosis for this admission?: Yes (2) COPD (chronic obstructive pulmonary disease) Qualifiers: COPD type: unspecified COPD Qualified Code(s): J44.9 - Chronic obstructive pulmonary disease, unspecified Is this a current diagnosis for this admission?: Yes (3) Severe hypoxemia Is this a current diagnosis for this admission?: Yes (4) HTN (hypertension) Qualifiers: Hypertension type: essential hypertension Qualified Code(s): I10 - Essential (primary) hypertension Is this a current diagnosis for this admission?: Yes (5) HLD (hyperlipidemia) Qualifiers: Hyperlipidemia type: unspecified Qualified Code(s): E78.5 - Hyperlipidemia , unspecified Is this a current diagnosis for this admission?: Yes (6) Osteoarthritis involving multiple joints on both sides of body Is this a current diagnosis for this admission?: Yes (7) Mass of lower lobe of right lung Is this a current diagnosis for this admission?: Yes (8) Bilateral pleural effusion Is this a current diagnosis for this admission?: Yes - Plan Summary Plan Summary: Start patient on BiPAP machine with 2 L nasal cannula, continue all other treatment
[2017-08-04] MEDS: LEVOFLOXACIN 500 MG/D5W RTU 500 MG/100 ML RTUPB IV SCH (21:28)
[2017-08-05] MEDS: METHYLPREDNISOLONE INJ 125 MG/2 ML SDV IV SCH ×2 (05:13→18:04)
[2017-08-05] MEDS: LANSOPRAZOLE 30 MG TAB.RAP.DR PO SCH (05:16)
[2017-08-05] MEDS: OXYBUTYNIN CHLORIDE 5 MG TABLET PO SCH ×2 (09:23→18:04)
[2017-08-05] MEDS: CEFEPIME 1 GM/D5W RTU 1 GM/50 ML RTUPB IV SCH ×2 (09:23→22:58)
[2017-08-05] MEDS: FUROSEMIDE 20 MG TABLET PO SCH (09:23)
[2017-08-05] MEDS: ENOXAPARIN SODIUM INJ 40 MG/0.4 ML DISP.SYRIN SUBCUT SCH (09:23)
--- NOTE | 2017-08-05 18:46 | PDOC PROGRESS REPORT ---
Subjective Progress Note for:: 08/05/17 Subjective:: Patient's daughter at bedside reported claustrophobia with BiPAP mask usage. Patient remain on supplemental oxygen via nasal cannula with some baseline acceptance. Denied chest pain. No abdominal; pain, nausea, or vomiting. Appetite and oral intake improving gradually. No fever or chills. Reason For Visit: CHF WITH HYPOXEMIA Physical Exam Vital Signs: Temp Pulse Resp BP Pulse Ox 97.4 F 89 20 133/95 H 91 L 08/05/17 16:25 08/05/17 16:25 08/05/17 07:34 08/05/17 16:25 08/05/17 16:25 Intake & Output 08/04/17 08/05/17 08/06/17 06:59 06:59 06:59 Intake Total 580 850 709 Output Total 200 Balance 380 850 709 Weight 62.2 kg 61.5 kg Physical Exam: General appearance: PRESENT: cooperative, mild distress Head exam: PRESENT: atraumatic, normocephalic Eye exam: PRESENT: conjunctiva pink, EOMI, PERRLA. ABSENT: scleral icterus Respiratory exam: PRESENT: crackles - scattered bilaterally, decreased breath sounds - at lung bases Cardiovascular exam: PRESENT: RRR. ABSENT: diastolic murmur, rubs, systolic murmur Vascular exam: PRESENT: normal capillary refill. Right IJ site dressing with blood. ABSENT: pallor GI/Abdominal exam: PRESENT: normal bowel sounds, soft. ABSENT: distended, guarding, mass, organomegaly, rebound, tenderness Rectal exam: PRESENT: deferred Extremities exam: PRESENT: pedal edema - right >> left with some degree of comparative improvement. Musculoskeletal exam: PRESENT: deformity - related to multiple joint involvement with arthritis Neurological exam: PRESENT: alert, awake, oriented to person, oriented to place , oriented to time, oriented to situation, CN II-XII grossly intact. ABSENT: motor sensory deficit Psychiatric exam: PRESENT: appropriate affect, normal mood. ABSENT: homicidal ideation, suicidal ideation Skin exam: PRESENT: dry, intact, warm. ABSENT: cyanosis, rash Results Laboratory Results: 08/03/17 05:53 08/03/17 05:53 08/03/17 08/03/17 08/03/17 12:10 12:10 12:10 Fluid Glucose 168 Fluid Total Protein 2.2 Fluid Albumin 1.1 Fluid LDH 121 08/01/17 08/01/17 08/01/17 20:15 20:15 20:15 Creatine Kinase 89 CK-MB (CK-2) 3.00 Troponin I 0.078 NT-Pro-B Natriuret Pep [id number] H 08/02/17 08/02/17 08/02/17 02:24 02:24 08:56 Creatine Kinase 77 83 CK-MB (CK-2) 2.38 Troponin I 0.082 NT-Pro-B Natriuret Pep 08/02/17 08:56 Creatine Kinase CK-MB (CK-2) 2.77 Troponin I 0.067 NT-Pro-B Natriuret Pep Impressions: Chest/Abdomen CTA 08/02/17 00:00 IMPRESSION: 1. No pulmonary emboli. 2. Cardiomegaly. Dilated main pulmonary artery, may be seen with pulmonary arterial hypertension. Reflux of intravenous contrast into the IVC and the hepatic veins, suggestive of right heart failure. Irregular ulcerative plaque in the descending thoracic aorta. 3. Heterogeneous mass at the right lower lobe, worrisome for malignancy. Right hilar and mediastinal adenopathy. Further evaluation with PET/ CT recommended. 4. Bilateral pleural effusions, right more than left. 5. Bilateral airspace opacities, may represent atelectasis or pneumonia. 6. Emphysema. 7. Small abdominal ascites. Diffuse subcutaneous edema. Thoracentesis Ultrasound 08/02/17 18:14 IMPRESSION: SUCCESSFUL THORACENTESIS USING ULTRASOUND GUIDANCE. Chest X-Ray 08/03/17 14:25 IMPRESSION: 1. Stable central vascular access catheter. 2. Status post thoracentesis without evidence of re- accumulation or pneumothorax. Assessment & Plan - Diagnosis (1) Acute systolic CHF (congestive heart failure) Is this a current diagnosis for this admission?: Yes (2) COPD (chronic obstructive pulmonary disease) Qualifiers: COPD type: unspecified COPD Qualified Code(s): J44.9 - Chronic obstructive pulmonary disease, unspecified Is this a current diagnosis for this admission?: Yes (3) Severe hypoxemia Is this a current diagnosis for this admission?: Yes (4) HTN (hypertension) Qualifiers: Hypertension type: essential hypertension Qualified Code(s): I10 - Essential (primary) hypertension Is this a current diagnosis for this admission?: Yes (5) HLD (hyperlipidemia) Qualifiers: Hyperlipidemia type: unspecified Qualified Code(s): E78.5 - Hyperlipidemia , unspecified Is this a current diagnosis for this admission?: Yes (6) Osteoarthritis involving multiple joints on both sides of body Is this a current diagnosis for this admission?: Yes (7) Mass of lower lobe of right lung Is this a current diagnosis for this admission?: Yes (8) Bilateral pleural effusion Is this a current diagnosis for this admission?: Yes (9) CHF with right heart failure Is this a current diagnosis for this admission?: Yes - Time Time Spent with patient: 35 or more minutes Medications reviewed and adjusted accordingly: Yes Anticipated discharge: Home with Homehealth Within: Other - Inpatient Certification Based on my medical assessment, after consideration of the patient's comorbidities, presenting symptoms, or acuity I expect that the services needed warrant INPATIENT care.: Yes I certify that my determination is in accordance with my understanding of Medicare's requirements for reasonable and necessary INPATIENT services [42 CFR 412.3e].: Yes Medical Necessity: Need Close Monitoring Due to Risk of Patient Decompensation, Need For IV Fluids, Need For Continuous Telemetry Monitoring, Need for Nebulizer Therapy and Monitoring of Response, Need for IV Antibiotics, Risk of Diagnosis Which Will Require Inpatient Eval/Care/Monitoring Post Hospital Care: D/C Local Driver Documentation - Plan Summary Plan Summary: Continue IV Cefepime and Levofloxacin coverage. Follow up on Pleural fluid cytology findings. industrial methods consultant to review of her triple lumen. Decrease IV Solu Medrol to 40 mg [id number].
[2017-08-05] MEDS ORDERED: METHYLPREDNISOLONE INJ 125 MG/2 ML SDV IV SCH (18:47)
--- NOTE | 2017-08-05 22:08 | OPERATIVE REPORT E ---
Operative Report NAME: RHETT HORAN : 1940 AGE: 76Y DATE OF SURGERY: 08/05/2017 ROOM: 434 PREOPERATIVE DIAGNOSIS: Malfunctioning right internal jugular vein central venous access catheter. POSTOPERATIVE DIAGNOSIS: Malpositioned central venous pressure line, right internal jugular position. OPERATION: Repositioning of right internal jugular vein central venous access catheter. SURGEON: KEVIN KRAUS M.D. ANESTHESIA: None. DRAINS: None. TISSUE REMOVED OR ALTERED: None. FINDINGS: Patient was found to have a right IJ catheter placed several days ago, with leaking of IV fluids and some blood from the exit site. SUMMARY: The findings were as above. The catheter had backed out of the skin several centimeters and was likely leaking due to insufficient length of catheter into the venous system. Existing dressings removed, suture lassoing the catheter at the skin site was divided, the area prepped and draped with chlorhexidine. The triple-lumen access catheter was then threaded approximately 5 to 7 cm back into the patient. A Biopatch and op site dressing were then reapplied. Catheter lumens x3 were aspirated and flushed satisfactorily. The impression was that of a restored catheter, suitable for continued use. DICTATING PHYSICIAN: KEVIN KRAUS M.D. [id number] Y#: [id number] ID: [id number] JOB#: [id number] ACCT: [id number] cc:KEVIN KRAUS M.D. >
[2017-08-05] MEDS: LEVOFLOXACIN 500 MG TABLET PO SCH (22:57)
[2017-08-05] MEDS: METHYLPREDNISOLONE INJ 40 MG/1 ML SDV IV SCH (22:58)
[2017-08-06] MEDS: LANSOPRAZOLE 30 MG TAB.RAP.DR PO SCH (05:29)
[2017-08-06] MEDS: METHYLPREDNISOLONE INJ 40 MG/1 ML SDV IV SCH ×3 (05:30→22:24)
[2017-08-06 06:08] LABS: HEMATOCRIT 39.9 % (36.0-47.0); HEMOGLOBIN 13.2 g/dL (12.0-15.5); HGB HCT DIFFERENCE -0.3; MEAN CORPUSCULAR HEMOGLOBIN 27.8 pg (27.0-33.4); MEAN CORPUSCULAR VOLUME 85 fl (80-97); RED BLOOD COUNT 4.73 10^6/uL (3.72-5.28); RED CELL DISTRIBUTION WIDTH 19.9 % (11.5-14.0); WHITE BLOOD COUNT 8.4 10^3/uL (4.0-10.5)
[2017-08-06 06:11] LABS: ALANINE AMINOTRANSFERASE 44 U/L (9-52); ALBUMIN 3.1 g/dL (3.5-5.0); ALKALINE PHOSPHATASE 75 U/L (38-126); ANION GAP 10 (5-19); ASPARTATE AMINO TRANSFERASE 53 U/L (14-36); BILIRUBIN,DIRECT 1.3 mg/dL (0.0-0.4); BILIRUBIN,TOTAL 1.9 mg/dL (0.2-1.3); BLOOD UREA NITROGEN 30 mg/dL (7-20); CALCIUM 8.4 mg/dL (8.4-10.2); CARBON DIOXIDE 29 mmol/L (22-30); CHLORIDE 96 mmol/L (98-107); CREATININE RESULT 0.91 mg/dL (0.52-1.25); GLUCOSE 133 mg/dL (75-110); TOTAL PROTEIN 6.4 g/dL (6.3-8.2)
[2017-08-06 06:46] LABS: BASOPHILS % (MANUAL) 0 % (0-2); EOSINOPHILS % (MANUAL) 0 % (0-6); LYMPHOCYTES % (MANUAL) 9 % (13-45); TOTAL CELLS COUNTED 100
[2017-08-06 06:51] LABS: ANISOCYTOSIS 2+; BURR CELLS SLIGHT; HYPOCHROMASIA SLIGHT; OVALOCYTES SLIGHT; POIKILOCYTOSIS 1+; SCHISTOCYTES SLIGHT; TARGET CELLS SLIGHT
[2017-08-06] MEDS: FUROSEMIDE 20 MG TABLET PO SCH (08:45)
[2017-08-06] MEDS: ENOXAPARIN SODIUM INJ 40 MG/0.4 ML DISP.SYRIN SUBCUT SCH (10:59)
[2017-08-06] MEDS: CEFEPIME 1 GM/D5W RTU 1 GM/50 ML RTUPB IV SCH ×2 (10:59→22:24)
[2017-08-06] MEDS: OXYBUTYNIN CHLORIDE 5 MG TABLET PO SCH ×2 (10:59→17:44)
--- NOTE | 2017-08-06 19:44 | PDOC PROGRESS REPORT ---
Subjective Progress Note for:: 08/06/17 Subjective:: Patient denied any chest pain. She remain on supplemental oxygen via nasal cannula. No abdominal; pain, nausea, or vomiting. Appetite and oral intake satisfactory. No fever or chills. Her pleural fluid cytology was unrevealing regarding malignant cells. I had extensive discussion with patient and daughter at bedside regarding need for lesion biopsy and they are in agreement to move forward. Reason For Visit: CHF WITH HYPOXEMIA Physical Exam Vital Signs: Temp Pulse Resp BP Pulse Ox 97.2 F 91 18 134/86 H 93 08/06/17 16:00 08/06/17 16:00 08/06/17 16:00 08/06/17 16:00 08/06/17 16:00 Intake & Output 08/05/17 08/06/17 08/07/17 06:59 06:59 06:59 Intake Total 850 809 120 Balance 850 809 120 Weight 61.5 kg Physical Exam: General appearance: PRESENT: cooperative, mild distress Head exam: PRESENT: atraumatic, normocephalic Eye exam: PRESENT: conjunctiva pink, EOMI, PERRLA. ABSENT: scleral icterus Respiratory exam: PRESENT: crackles - scattered bilaterally, decreased breath sounds - at lung bases Cardiovascular exam: PRESENT: RRR. ABSENT: diastolic murmur, rubs, systolic murmur Vascular exam: PRESENT: normal capillary refill. Right IJ site dressing satisfactory after adjustment of catheter by the surgicalist. ABSENT: pallor GI/Abdominal exam: PRESENT: normal bowel sounds, soft. ABSENT: distended, guarding, mass, organomegaly, rebound, tenderness Rectal exam: PRESENT: deferred Extremities exam: PRESENT: pedal edema - right >> left with some degree of comparative improvement. Musculoskeletal exam: PRESENT: deformity - related to multiple joint involvement with arthritis Neurological exam: PRESENT: alert, awake, oriented to person, oriented to place , oriented to time, oriented to situation, CN II-XII grossly intact. ABSENT: motor sensory deficit Psychiatric exam: PRESENT: appropriate affect, normal mood. ABSENT: homicidal ideation, suicidal ideation Skin exam: PRESENT: dry, intact, warm. ABSENT: cyanosis, rash Results Laboratory Results: 08/06/17 05:27 08/06/17 05:27 08/06/17 08/06/17 05:27 05:27 WBC 8.4 RBC 4.73 Hgb 13.2 Hct 39.9 MCV 85 MCH 27.8 MCHC 33.0 RDW 19.9 H Plt Count 141 L Seg Neutrophils % Not Reportable Lymphocytes % Not Reportable Monocytes % Not Reportable Eosinophils % Not Reportable Basophils % Not Reportable Absolute Neutrophils Not Reportable Absolute Lymphocytes Not Reportable Absolute Monocytes Not Reportable Absolute Eosinophils Not Reportable Absolute Basophils Not Reportable Sodium 135.0 L Potassium 4.0 Chloride 96 L Carbon Dioxide 29 Anion Gap 10 BUN 30 H Creatinine 0.91 Est GFR ( Amer) > 60 Est GFR (Non-Af Amer) > 60 Glucose 133 H Calcium 8.4 Total Bilirubin 1.9 H AST 53 H ALT 44 Alkaline Phosphatase 75 Total Protein 6.4 Albumin 3.1 L 08/01/17 08/01/17 08/01/17 20:15 20:15 20:15 Creatine Kinase 89 CK-MB (CK-2) 3.00 Troponin I 0.078 NT-Pro-B Natriuret Pep [id number] H 08/02/17 08/02/17 08/02/17 02:24 02:24 08:56 Creatine Kinase 77 83 CK-MB (CK-2) 2.38 Troponin I 0.082 NT-Pro-B Natriuret Pep 08/02/17 08:56 Creatine Kinase CK-MB (CK-2) 2.77 Troponin I 0.067 NT-Pro-B Natriuret Pep Impressions: Chest/Abdomen CTA 08/02/17 00:00 IMPRESSION: 1. No pulmonary emboli. 2. Cardiomegaly. Dilated main pulmonary artery, may be seen with pulmonary arterial hypertension. Reflux of intravenous contrast into the IVC and the hepatic veins, suggestive of right heart failure. Irregular ulcerative plaque in the descending thoracic aorta. 3. Heterogeneous mass at the right lower lobe, worrisome for malignancy. Right hilar and mediastinal adenopathy. Further evaluation with PET/ CT recommended. 4. Bilateral pleural effusions, right more than left. 5. Bilateral airspace opacities, may represent atelectasis or pneumonia. 6. Emphysema. 7. Small abdominal ascites. Diffuse subcutaneous edema. Thoracentesis Ultrasound 08/02/17 18:14 IMPRESSION: SUCCESSFUL THORACENTESIS USING ULTRASOUND GUIDANCE. Chest X-Ray 08/03/17 14:25 IMPRESSION: 1. Stable central vascular access catheter. 2. Status post thoracentesis without evidence of re- accumulation or pneumothorax. Assessment & Plan - Diagnosis (1) Acute systolic CHF (congestive heart failure) Is this a current diagnosis for this admission?: Yes (2) COPD (chronic obstructive pulmonary disease) Qualifiers: COPD type: unspecified COPD Qualified Code(s): J44.9 - Chronic obstructive pulmonary disease, unspecified Is this a current diagnosis for this admission?: Yes (3) Severe hypoxemia Is this a current diagnosis for this admission?: Yes (4) HTN (hypertension) Qualifiers: Hypertension type: essential hypertension Qualified Code(s): I10 - Essential (primary) hypertension Is this a current diagnosis for this admission?: Yes (5) HLD (hyperlipidemia) Qualifiers: Hyperlipidemia type: unspecified Qualified Code(s): E78.5 - Hyperlipidemia , unspecified Is this a current diagnosis for this admission?: Yes (6) Osteoarthritis involving multiple joints on both sides of body Is this a current diagnosis for this admission?: Yes (7) Mass of lower lobe of right lung Is this a current diagnosis for this admission?: Yes Plan: Patient will need CT guided lung mass biopsy procedure if lesion is approachable otherwise I will request pulmonary consultation for bronchoscopy. (8) Bilateral pleural effusion Is this a current diagnosis for this admission?: Yes (9) CHF with right heart failure Is this a current diagnosis for this admission?: Yes - Time Time Spent with patient: 35 or more minutes Medications reviewed and adjusted accordingly: Yes Anticipated discharge: Home with Homehealth Within: Other - Inpatient Certification Based on my medical assessment, after consideration of the patient's comorbidities, presenting symptoms, or acuity I expect that the services needed warrant INPATIENT care.: Yes I certify that my determination is in accordance with my understanding of Medicare's requirements for reasonable and necessary INPATIENT services [42 CFR 412.3e].: Yes Medical Necessity: Need For IV Fluids, Need For Continuous Telemetry Monitoring , Need for Nebulizer Therapy and Monitoring of Response, Need for IV Antibiotics , Risk of Complication if Not Cared For in Hospital Post Hospital Care: D/C Hospitality Aide Documentation - Plan Summary Plan Summary: See attending physician orders.
[2017-08-06] MEDS: LEVOFLOXACIN 500 MG TABLET PO SCH (22:24)
--- NOTE | 2017-08-06 23:19 | Palliative Consultation Report ---
Consultation From:: ÁLVARO SMITH Consult Reason: Palliative Care - HPI HPI: Appreciate consult request with this 76 year old woman who has been admitted with multiple medical problems including COPD, CHF, Cardiomegaly, bilateral pleural effusions and mass in her right lower lobe lung. Mrs Chadwick is alert but appears very weak. She denies pain at present and appears short of breath in spite of her oxygen. Her and grandson are at bedside. I attempted to talk to about her care and options to help her at home. however, he said his daughter will be the one to make any plans about care and he will ask her to call me. He did not know what would be happening here in the next few days. I tried to discuss further testing such as scans and possible biopsy but again referred me to his daughter. Patient has many comorbid conditions and is very weak at present. Treatment plans will be determined after further testing is completed and patient completes more of her antibiotics and steroids to help her feel better and breath better. They had no questions and did not want to talk at present . DNR in place. Onset: Last week Onset/Duration: Gradual Severity: Mild Pain Level: Denies Associated Symptoms: Hurts to breath, Shortness of breath, Weakness Exacerbated by: Coughing Relieved by: Remaining still Past Medical History(Consults) - General Information Source: Patient, Relative, [facility] Records Home Medications: Fluticasone/Vilanterol [Breo Ellipta 100-25 Mcg INH] 1 puff IH DAILY 08/01/17 Furosemide [Lasix 20 mg Tablet] 20 mg PO QAM 08/01/17 Oxybutynin Chloride [Ditropan 5 Mg Tablet] 5 mg PO BID 08/01/17 Allergies/Adverse Reactions: No Known Allergies Allergy (Verified 09/20/15 10:59) - Social History Lives with: Family Family History: Reviewed & Not Pertinent Parental Family History Reviewed: No Children Family History Reviewed: No Sibling(s) Family History Reviewed.: No Smoking Status: Former Smoker Frequency of Alcohol Use: None Hx Recreational Drug Use: No Drugs: None Hx Prescription Drug Abuse: No - Past Medical History Cardiac Medical History: Reports: Hx Congestive Heart Failure, Hx Hypercholesterolemia, Hx Hypertension Denies: Hx Coronary Artery Disease - HIGH CHOLESTEROL, Hx Heart Attack Pulmonary Medical History: Reports: Hx COPD Denies: Hx Asthma, Hx Bronchitis, Hx Pneumonia Neurological Medical History: Denies: Hx Cerebrovascular Accident, Hx Seizures Musculoskeltal Medical History: Reports Hx Arthritis - OSTEO Hematology: Denies: Anemia Review of systems Constitutional: Weakness, Weight loss, Recent illness Cardiovascular: Chest pain, Dyspnea Respiratory: Cough, Short of breath Gastrointestinal: Poor appetite Geniturinary: No symptoms reported Neurological/Psychological: Anxiety, Weakness Ojective:Exam Vital Signs: Temp Pulse Resp BP Pulse Ox 97.9 F 97 20 140/93 H 95 08/06/17 19:59 08/06/17 19:59 08/06/17 19:59 08/06/17 19:59 08/06/17 20:14 Intake & Output 08/05/17 08/06/17 08/07/17 06:59 06:59 06:59 Intake Total 850 809 200 Balance 850 809 200 Weight 61.5 kg - General General Appearance: Alert In distress: Mild Note:: Denies pain, weak and has noted dyspnea at rest. - HEENT Head: Normocephalic Eyes: Pale conjunctiva Pupils: PERRLA Mucous membrane: Moist - Respiratory Breath sounds: Rhonchi - Cardiovascular Rhythm: Regular - Neurological Cognition: Normal Orientation: Alert, Oriented to person, Oriented to place, Oriented to time Cranial nerves: Normal Objective-Diagnostic Laboratory: 08/06/17 05:27 08/06/17 05:27 08/06/17 08/06/17 05:27 05:27 WBC 8.4 RBC 4.73 Hgb 13.2 Hct 39.9 MCV 85 MCH 27.8 MCHC 33.0 RDW 19.9 H Plt Count 141 L Seg Neutrophils % Not Reportable Lymphocytes % Not Reportable Monocytes % Not Reportable Eosinophils % Not Reportable Basophils % Not Reportable Absolute Neutrophils Not Reportable Absolute Lymphocytes Not Reportable Absolute Monocytes Not Reportable Absolute Eosinophils Not Reportable Absolute Basophils Not Reportable Sodium 135.0 L Potassium 4.0 Chloride 96 L Carbon Dioxide 29 Anion Gap 10 BUN 30 H Creatinine 0.91 Est GFR ( Amer) > 60 Est GFR (Non-Af Amer) > 60 Glucose 133 H Calcium 8.4 Total Bilirubin 1.9 H AST 53 H ALT 44 Alkaline Phosphatase 75 Total Protein 6.4 Albumin 3.1 L 08/01/17 08/01/17 08/01/17 20:15 20:15 20:15 Creatine Kinase 89 CK-MB (CK-2) 3.00 Troponin I 0.078 NT-Pro-B Natriuret Pep [id number] H 08/02/17 08/02/17 08/02/17 02:24 02:24 08:56 Creatine Kinase 77 83 CK-MB (CK-2) 2.38 Troponin I 0.082 NT-Pro-B Natriuret Pep 08/02/17 08:56 Creatine Kinase CK-MB (CK-2) 2.77 Troponin I 0.067 NT-Pro-B Natriuret Pep Plan and Recommendation Plan and Recommendation: Introductory visit with hesitant to talk to me. He will give my card and cell number to his daughter to all me to discuss symptoms and concerns. I will follow as hospital stay progresses and will be happy to follow at home for palliaitve care if Dr. Walsh requests. If biopsy positive for malignancy, she may be appropriate for hospice care. Apprecite opportunity to participate in care. Will be happy to spek with daughter when she calls. Will follow. - Time Spent with Patient Time spent with patient: 15 to 30 Minutes
[2017-08-07] MEDS: LANSOPRAZOLE 30 MG TAB.RAP.DR PO SCH (05:22)
[2017-08-07 05:45] LABS: HEMATOCRIT 43.3 % (36.0-47.0); HEMOGLOBIN 14.3 g/dL (12.0-15.5); HGB HCT DIFFERENCE -0.4; MEAN CORPUSCULAR HEMOGLOBIN 28.1 pg (27.0-33.4); MEAN CORPUSCULAR HGB CONC 33.1 g/dL (32.0-36.0); MEAN CORPUSCULAR VOLUME 85 fl (80-97); RED BLOOD COUNT 5.09 10^6/uL (3.72-5.28); RED CELL DISTRIBUTION WIDTH 19.9 % (11.5-14.0); WHITE BLOOD COUNT 9.3 10^3/uL (4.0-10.5)
[2017-08-07 05:46] LABS: PROTHROMBIN TIME 21.1 SEC (11.4-15.4)
[2017-08-07 05:47] LABS: PARTIAL THROMBOPLASTIN TIME 33.5 SEC (23.5-35.8)
[2017-08-07 06:01] LABS: ALANINE AMINOTRANSFERASE 40 U/L (9-52); ALBUMIN 3.4 g/dL (3.5-5.0); ALKALINE PHOSPHATASE 81 U/L (38-126); ANION GAP 16 (5-19); ASPARTATE AMINO TRANSFERASE 47 U/L (14-36); BILIRUBIN,DIRECT 1.5 mg/dL (0.0-0.4); BILIRUBIN,TOTAL 2.5 mg/dL (0.2-1.3); BLOOD UREA NITROGEN 30 mg/dL (7-20); CALCIUM 8.5 mg/dL (8.4-10.2); CARBON DIOXIDE 26 mmol/L (22-30); CHLORIDE 96 mmol/L (98-107); CREATININE RESULT 1.04 mg/dL (0.52-1.25); GLUCOSE 117 mg/dL (75-110); SODIUM 138.2 mmol/L (137-145); TOTAL PROTEIN 6.6 g/dL (6.3-8.2)
[2017-08-07 06:16] LABS: BAND NEUTROPHILS % (MANUAL) 1 % (3-5); BASOPHILS % (MANUAL) 0 % (0-2); EOSINOPHILS % (MANUAL) 0 % (0-6); LYMPHOCYTES % (MANUAL) 2 % (13-45); TOTAL CELLS COUNTED 100
[2017-08-07 06:18] LABS: ANISOCYTOSIS 2+; HYPOCHROMASIA SLIGHT; OVALOCYTES SLIGHT; POIKILOCYTOSIS 1+; SCHISTOCYTES SLIGHT; TARGET CELLS 1+
[2017-08-07] MEDS: FUROSEMIDE 20 MG TABLET PO SCH (08:27)
[2017-08-07] MEDS: OXYBUTYNIN CHLORIDE 5 MG TABLET PO SCH ×2 (10:18→18:37)
[2017-08-07] MEDS: METHYLPREDNISOLONE INJ 40 MG/1 ML SDV IV SCH ×2 (10:18→22:12)
[2017-08-07] MEDS: CEFEPIME 1 GM/D5W RTU 1 GM/50 ML RTUPB IV SCH ×2 (10:19→22:12)
--- NOTE | 2017-08-07 14:47 | PDOC CONSULTATION ---
Consultation Consult Date: 08/07/17 Attending physician:: TAMIE DEL CASTILLO Consult reason:: Lung mass History of Present Illness Admission Date/PCP: 08/01/17 16:51 GILDARDO CORREA History of Present Illness: RHETT HORAN is a 76 year old female history of dementia as well as emphysema presented to the ED coughing with dyspnea and edema with a some cachexia and rhinorrhea arthralgias and myalgias she was subsequently admitted to the hospital found to have pleural effusions the right pleural effusions drained cytology was negative but did appear to be a right sided lung lesion. Additional information is difficult to glean as the patient is significantly demented. Past Medical History Cardiac Medical History: Reports: Congestive Heart Failure, Hyperlipidema, Hypertension Denies: Coronary Artery Disease - HIGH CHOLESTEROL, Myocardial Infarction Pulmonary Medical History: Reports: Chronic Obstructive Pulmonary Disease (COPD) Denies: Asthma, Bronchitis, Pneumonia EENT Medical History: Denies: Ears, Nose, Throat Neurological Medical History: Denies: Multiple Sclerosis, Seizures Endocrine Medical History: Denies: Obesity Renal/ Medical History: Denies: Nephrolithiasis Malignancy Medical History: Reports: None GI Medical History: Denies: Cirrhosis, Crohn's Disease, Hepatitis, Ulcerative Colitis Musculoskeltal Medical History: Reports: Arthritis - OSTEO Denies: Fibromyalgia Skin Medical History: Denies: Eczema, Psoriasis Psychiatric Medical History: Reports: Dementia Denies: Attention Deficit Hyperactivity Disorder, Schizoaffective Disorder Hematology: Denies: Anemia Infectious Medical History: Denies: Hepatitis B, Hepatitis C Social History Information Source: [facility] Records Lives with: Family Smoking Status: Former Smoker Frequency of Alcohol Use: None Hx Recreational Drug Use: No Drugs: None Hx Prescription Drug Abuse: No - Advance Directive Resuscitation Status: Do Not Resuscitate - I had extensive discussion with patient at bedside in concert with family and nursing staff. Patient expressed wish to be a DNR status at this time. Family History Parental Family History Reviewed: No Children Family History Reviewed: No Sibling(s) Family History Reviewed.: No Medication/Allergy Home Medications: Fluticasone/Vilanterol [Breo Ellipta 100-25 Mcg INH] 1 puff IH DAILY 08/01/17 Furosemide [Lasix 20 mg Tablet] 20 mg PO QAM 08/01/17 Oxybutynin Chloride [Ditropan 5 Mg Tablet] 5 mg PO BID 08/01/17 Allergies/Adverse Reactions: No Known Allergies Allergy (Verified 09/20/15 10:59) Review of Systems ROS unobtainable: Due to mental status Physical Exam Vital Signs: Temp Pulse Resp BP Pulse Ox 97.4 F 103 H 20 149/85 H 94 08/07/17 08:25 08/07/17 09:15 08/07/17 09:15 08/07/17 08:25 08/07/17 09:15 Intake & Output 08/06/17 08/07/17 08/08/17 06:59 06:59 06:59 Intake Total 809 430 Balance 809 430 General appearance: PRESENT: no acute distress, cooperative, disheveled, thin, well-developed. ABSENT: hard of hearing, mild distress, morbidly obese, obese, severe distress Head exam: PRESENT: atraumatic, normocephalic Eye exam: PRESENT: conjunctiva pale, EOMI. ABSENT: conjunctival injection, conjunctiva pink, nystagmus, periorbital swelling, scleral icterus Mouth exam: PRESENT: dry mucosa, neck supple, tongue midline. ABSENT: laceration, moist Teeth exam: PRESENT: poor dentation Neck exam: ABSENT: carotid bruit, JVD, lymphadenopathy, thyromegaly, tracheal deviation, tracheostomy Respiratory exam: PRESENT: decreased breath sounds, prolonged expiratory phas, rales, rhonchi, symmetrical, unlabored. ABSENT: accessory muscle use, chest wall tenderness, clear to auscultation kim, crackles, retraction, stridor, tachypnea Cardiovascular exam: PRESENT: RRR, +S1, +S2. ABSENT: rubs Pulses: PRESENT: normal radial pulses GI/Abdominal exam: PRESENT: normal bowel sounds, soft. ABSENT: distended, guarding, mass, organolmegaly, rebound, tenderness Extremities exam: ABSENT: calf tenderness, clubbing, joint swelling Musculoskeletal exam: ABSENT: deformity, dislocation, tenderness Neurological exam: PRESENT: awake Skin exam: PRESENT: dry Results Laboratory Results: 08/07/17 05:20 08/07/17 05:20 08/07/17 08/07/17 05:20 05:20 WBC 9.3 RBC 5.09 Hgb 14.3 Hct 43.3 MCV 85 MCH 28.1 MCHC 33.1 RDW 19.9 H Plt Count 143 L Seg Neutrophils % Not Reportable Lymphocytes % Not Reportable Monocytes % Not Reportable Eosinophils % Not Reportable Basophils % Not Reportable Absolute Neutrophils Not Reportable Absolute Lymphocytes Not Reportable Absolute Monocytes Not Reportable Absolute Eosinophils Not Reportable Absolute Basophils Not Reportable Sodium 138.2 Potassium 4.0 Chloride 96 L Carbon Dioxide 26 Anion Gap 16 BUN 30 H Creatinine 1.04 Est GFR ( Amer) > 60 Est GFR (Non-Af Amer) 52 L Glucose 117 H Calcium 8.5 Total Bilirubin 2.5 H AST 47 H ALT 40 Alkaline Phosphatase 81 Total Protein 6.6 Albumin 3.4 L 08/03/17 12:10 Pleural Fluid Gram Stain - Final 08/03/17 12:10 Pleural Fluid Body Fluid Culture - Final NO AEROBIC OR ANAEROBIC ORGANISMS RECOVERED 08/01/17 08/01/17 08/01/17 20:15 20:15 20:15 Creatine Kinase 89 CK-MB (CK-2) 3.00 Troponin I 0.078 NT-Pro-B Natriuret Pep [id number] H 08/02/17 08/02/17 08/02/17 02:24 02:24 08:56 Creatine Kinase 77 83 CK-MB (CK-2) 2.38 Troponin I 0.082 NT-Pro-B Natriuret Pep 08/02/17 08:56 Creatine Kinase CK-MB (CK-2) 2.77 Troponin I 0.067 NT-Pro-B Natriuret Pep Impressions: Chest/Abdomen CTA 08/02/17 00:00 IMPRESSION: 1. No pulmonary emboli. 2. Cardiomegaly. Dilated main pulmonary artery, may be seen with pulmonary arterial hypertension. Reflux of intravenous contrast into the IVC and the hepatic veins, suggestive of right heart failure. Irregular ulcerative plaque in the descending thoracic aorta. 3. Heterogeneous mass at the right lower lobe, worrisome for malignancy. Right hilar and mediastinal adenopathy. Further evaluation with PET/ CT recommended. 4. Bilateral pleural effusions, right more than left. 5. Bilateral airspace opacities, may represent atelectasis or pneumonia. 6. Emphysema. 7. Small abdominal ascites. Diffuse subcutaneous edema. Thoracentesis Ultrasound 08/02/17 18:14 IMPRESSION: SUCCESSFUL THORACENTESIS USING ULTRASOUND GUIDANCE. Chest X-Ray 08/03/17 14:25 IMPRESSION: 1. Stable central vascular access catheter. 2. Status post thoracentesis without evidence of re- accumulation or pneumothorax. Assessment & Plan - Diagnosis (1) CHF with right heart failure Is this a current diagnosis for this admission?: Yes Plan: Generic Name Dose Route Start Last Admin Trade Name Freq PRN Reason Stop Dose Admin Furosemide 20 mg 08/02/17 08:00 08/07/17 08:27 Lasix 20 Mg Tablet PO 09/01/17 07:59 20 mg QAM IRENE (2) COPD (chronic obstructive pulmonary disease) Qualifiers: COPD type: unspecified COPD Qualified Code(s): J44.9 - Chronic obstructive pulmonary disease, unspecified Is this a current diagnosis for this admission?: Yes Plan: Generic Name Dose Route Start Last Admin Trade Name Freq PRN Reason Stop Dose Admin Patient Own Medication 1 puff 08/02/17 10:00 Fluticasone/Vilanterol [Breo Ellipta 100-25 Mcg Inh] IH 09/01/17 09:59 .DAILY IRENE Methylprednisolone Sodium Succinate 40 mg 08/06/17 22:00 08/07/17 10:18 Solu-Medrol Inj/Pf 40 Mg/1 Ml Sdv IV 09/05/17 21:59 40 mg Q12 IRENE Albuterol/Ipratropium 3 ml 08/01/17 20:20 08/02/17 11:51 Duoneb 3 Ml Ampul NEB 08/31/17 20:19 3 ml [id number] PRN FOR WHEEZING (3) Mass of lower lobe of right lung Is this a current diagnosis for this admission?: Yes Plan: Discussed with primary care provider and family is quite frail probably time to tolerate bronchoscopy well but intubation was required this would be inconsistent with a DNR
--- NOTE | 2017-08-07 18:09 | PDOC PROGRESS REPORT ---
Subjective Progress Note for:: 08/07/17 Subjective:: Patient was not able to get CT guided lung mass biopsy due to surrounding structure and elevated coagulation parameters. Daughter and nursing staff reported episodes opf agitation and restlessness during the night. No chest pain. Compliance with supplemental oxygen usage is problematic. Reason For Visit: CHF WITH HYPOXEMIA Physical Exam Vital Signs: Temp Pulse Resp BP Pulse Ox 97.4 F 101 H 20 149/85 H 94 08/07/17 08:25 08/07/17 14:00 08/07/17 09:15 08/07/17 08:25 08/07/17 09:15 Intake & Output 08/06/17 08/07/17 08/08/17 06:59 06:59 06:59 Intake Total 809 430 Balance 809 430 General appearance: PRESENT: no acute distress, well-developed, well-nourished Head exam: PRESENT: atraumatic, normocephalic Eye exam: PRESENT: conjunctiva pink, EOMI, PERRLA. ABSENT: scleral icterus Mouth exam: PRESENT: moist Cardiovascular exam: PRESENT: RRR. ABSENT: diastolic murmur, rubs, systolic murmur Vascular exam: PRESENT: normal capillary refill, pallor GI/Abdominal exam: PRESENT: normal bowel sounds, soft. ABSENT: distended, guarding, mass, organolmegaly, rebound, tenderness Extremities exam: ABSENT: pedal edema Neurological exam: PRESENT: alert, awake, oriented to person, oriented to place , oriented to time, oriented to situation, CN II-XII grossly intact. ABSENT: motor sensory deficit Psychiatric exam: PRESENT: agitated, anxious Skin exam: PRESENT: dry, intact, warm. ABSENT: cyanosis, rash Results Laboratory Results: 08/07/17 05:20 08/07/17 05:20 08/07/17 08/07/17 05:20 05:20 WBC 9.3 RBC 5.09 Hgb 14.3 Hct 43.3 MCV 85 MCH 28.1 MCHC 33.1 RDW 19.9 H Plt Count 143 L Seg Neutrophils % Not Reportable Lymphocytes % Not Reportable Monocytes % Not Reportable Eosinophils % Not Reportable Basophils % Not Reportable Absolute Neutrophils Not Reportable Absolute Lymphocytes Not Reportable Absolute Monocytes Not Reportable Absolute Eosinophils Not Reportable Absolute Basophils Not Reportable Sodium 138.2 Potassium 4.0 Chloride 96 L Carbon Dioxide 26 Anion Gap 16 BUN 30 H Creatinine 1.04 Est GFR ( Amer) > 60 Est GFR (Non-Af Amer) 52 L Glucose 117 H Calcium 8.5 Total Bilirubin 2.5 H AST 47 H ALT 40 Alkaline Phosphatase 81 Total Protein 6.6 Albumin 3.4 L 08/03/17 12:10 Pleural Fluid Gram Stain - Final 08/03/17 12:10 Pleural Fluid Body Fluid Culture - Final NO AEROBIC OR ANAEROBIC ORGANISMS RECOVERED 08/01/17 08/01/17 08/01/17 20:15 20:15 20:15 Creatine Kinase 89 CK-MB (CK-2) 3.00 Troponin I 0.078 NT-Pro-B Natriuret Pep 18946 H 08/02/17 08/02/17 08/02/17 02:24 02:24 08:56 Creatine Kinase 77 83 CK-MB (CK-2) 2.38 Troponin I 0.082 NT-Pro-B Natriuret Pep 08/02/17 08:56 Creatine Kinase CK-MB (CK-2) 2.77 Troponin I 0.067 NT-Pro-B Natriuret Pep Impressions: Chest/Abdomen CTA 08/02/17 00:00 IMPRESSION: 1. No pulmonary emboli. 2. Cardiomegaly. Dilated main pulmonary artery, may be seen with pulmonary arterial hypertension. Reflux of intravenous contrast into the IVC and the hepatic veins, suggestive of right heart failure. Irregular ulcerative plaque in the descending thoracic aorta. 3. Heterogeneous mass at the right lower lobe, worrisome for malignancy. Right hilar and mediastinal adenopathy. Further evaluation with PET/ CT recommended. 4. Bilateral pleural effusions, right more than left. 5. Bilateral airspace opacities, may represent atelectasis or pneumonia. 6. Emphysema. 7. Small abdominal ascites. Diffuse subcutaneous edema. Thoracentesis Ultrasound 08/02/17 18:14 IMPRESSION: SUCCESSFUL THORACENTESIS USING ULTRASOUND GUIDANCE. Chest X-Ray 08/03/17 14:25 IMPRESSION: 1. Stable central vascular access catheter. 2. Status post thoracentesis without evidence of re- accumulation or pneumothorax. Assessment & Plan - Diagnosis (1) Acute systolic CHF (congestive heart failure) Is this a current diagnosis for this admission?: Yes (2) COPD (chronic obstructive pulmonary disease) Qualifiers: COPD type: unspecified COPD Qualified Code(s): J44.9 - Chronic obstructive pulmonary disease, unspecified Is this a current diagnosis for this admission?: Yes (3) Severe hypoxemia Is this a current diagnosis for this admission?: Yes (4) HTN (hypertension) Qualifiers: Hypertension type: essential hypertension Qualified Code(s): I10 - Essential (primary) hypertension Is this a current diagnosis for this admission?: Yes (5) HLD (hyperlipidemia) Qualifiers: Hyperlipidemia type: unspecified Qualified Code(s): E78.5 - Hyperlipidemia , unspecified Is this a current diagnosis for this admission?: Yes (6) Osteoarthritis involving multiple joints on both sides of body Is this a current diagnosis for this admission?: Yes (7) Mass of lower lobe of right lung Is this a current diagnosis for this admission?: Yes (8) Bilateral pleural effusion Is this a current diagnosis for this admission?: Yes (9) CHF with right heart failure Is this a current diagnosis for this admission?: Yes - Time Time Spent with patient: 25-34 minutes Medications reviewed and adjusted accordingly: Yes Anticipated discharge: Home with Homehealth Within: Other - Inpatient Certification Based on my medical assessment, after consideration of the patient's comorbidities, presenting symptoms, or acuity I expect that the services needed warrant INPATIENT care.: Yes I certify that my determination is in accordance with my understanding of Medicare's requirements for reasonable and necessary INPATIENT services [42 CFR 412.3e].: Yes Medical Necessity: Need Close Monitoring Due to Risk of Patient Decompensation, Need For Continuous Telemetry Monitoring, Risk of Complication if Not Cared For in Hospital Post Hospital Care: D/C Director Dermatology Documentation - Plan Summary Plan Summary: Decrease Solu Medrol to 20 mg IV [id number]. Continue all other current medication management. I will discuss case further with pulmonary pricing consultant regarding plan for bronchoscopy to assist in definite diagnosis.
[2017-08-07] MEDS ORDERED: TRAZODONE HCL 50 MG TABLET PO ONE (19:30)
[2017-08-07] MEDS: LEVOFLOXACIN 500 MG TABLET PO SCH (22:12)
[2017-08-08] MEDS: LANSOPRAZOLE 30 MG TAB.RAP.DR PO SCH (05:44)
[2017-08-08] MEDS: FUROSEMIDE 20 MG TABLET PO SCH (07:42)
[2017-08-08] MEDS: OXYBUTYNIN CHLORIDE 5 MG TABLET PO SCH ×2 (09:49→18:01)
[2017-08-08] MEDS: CEFEPIME 1 GM/D5W RTU 1 GM/50 ML RTUPB IV SCH ×2 (09:49→21:59)
[2017-08-08] MEDS: METHYLPREDNISOLONE INJ 40 MG/1 ML SDV IV SCH ×2 (09:50→21:59)
[2017-08-08] MEDS: ENOXAPARIN SODIUM INJ 40 MG/0.4 ML DISP.SYRIN SUBCUT SCH ×2 (09:51→10:16)
--- NOTE | 2017-08-08 16:53 | PDOC PROGRESS REPORT ---
Subjective Progress Note for:: 08/08/17 Subjective:: Confused lethargic Reason For Visit: CHF WITH HYPOXEMIA Physical Exam Vital Signs: Temp Pulse Resp BP Pulse Ox 97.4 F 92 22 H 149/101 H 93 08/08/17 11:49 08/08/17 11:49 08/08/17 11:49 08/08/17 11:49 08/08/17 16:45 Intake & Output 08/07/17 08/08/17 08/09/17 06:59 06:59 06:59 Intake Total 430 445 Output Total 600 Balance 430 -155 Weight 61.3 kg General appearance: PRESENT: no acute distress, disheveled, thin, well- developed. ABSENT: cooperative, mild distress, morbidly obese, obese, severe distress Head exam: PRESENT: atraumatic, normocephalic Eye exam: PRESENT: conjunctiva pale, EOMI. ABSENT: conjunctival injection, conjunctiva pink, nystagmus, periorbital swelling, scleral icterus Mouth exam: PRESENT: dry mucosa, moist, neck supple, tongue midline. ABSENT: laceration Teeth exam: PRESENT: poor dentation Neck exam: ABSENT: carotid bruit, JVD, lymphadenopathy, thyromegaly, tracheal deviation, tracheostomy Respiratory exam: PRESENT: decreased breath sounds, prolonged expiratory phas, rhonchi, symmetrical, unlabored, wheezes. ABSENT: accessory muscle use, chest wall tenderness, clear to auscultation kim, crackles, rales, retraction, stridor , tachypnea Cardiovascular exam: PRESENT: RRR, +S1, +S2. ABSENT: rubs Pulses: PRESENT: normal radial pulses GI/Abdominal exam: PRESENT: normal bowel sounds, soft. ABSENT: distended, guarding, mass, organolmegaly, rebound, tenderness Extremities exam: ABSENT: calf tenderness, clubbing, joint swelling Musculoskeletal exam: PRESENT: tenderness. ABSENT: deformity, dislocation Neurological exam: PRESENT: awake Skin exam: PRESENT: dry, warm Results Laboratory Results: 08/07/17 05:20 08/07/17 05:20 08/01/17 08/01/17 08/01/17 20:15 20:15 20:15 Creatine Kinase 89 CK-MB (CK-2) 3.00 Troponin I 0.078 NT-Pro-B Natriuret Pep 45895 H 08/02/17 08/02/1717 02:24 02:24 08:56 Creatine Kinase 77 83 CK-MB (CK-2) 2.38 Troponin I 0.082 NT-Pro-B Natriuret Pep 08/02/17 08:56 Creatine Kinase CK-MB (CK-2) 2.77 Troponin I 0.067 NT-Pro-B Natriuret Pep Impressions: Chest/Abdomen CTA 08/02/17 00:00 IMPRESSION: 1. No pulmonary emboli. 2. Cardiomegaly. Dilated main pulmonary artery, may be seen with pulmonary arterial hypertension. Reflux of intravenous contrast into the IVC and the hepatic veins, suggestive of right heart failure. Irregular ulcerative plaque in the descending thoracic aorta. 3. Heterogeneous mass at the right lower lobe, worrisome for malignancy. Right hilar and mediastinal adenopathy. Further evaluation with PET/ CT recommended. 4. Bilateral pleural effusions, right more than left. 5. Bilateral airspace opacities, may represent atelectasis or pneumonia. 6. Emphysema. 7. Small abdominal ascites. Diffuse subcutaneous edema. Thoracentesis Ultrasound 08/02/17 18:14 IMPRESSION: SUCCESSFUL THORACENTESIS USING ULTRASOUND GUIDANCE. Chest X-Ray 08/03/17 14:25 IMPRESSION: 1. Stable central vascular access catheter. 2. Status post thoracentesis without evidence of re- accumulation or pneumothorax. Assessment & Plan - Diagnosis (1) CHF with right heart failure Is this a current diagnosis for this admission?: Yes Plan: Generic Name Dose Route Start Last Admin Trade Name Freq PRN Reason Stop Dose Admin Furosemide 20 mg 08/02/17 08:00 08/07/17 08:27 Lasix 20 Mg Tablet PO 09/01/17 07:59 20 mg QAM IRENE (2) COPD (chronic obstructive pulmonary disease) Qualifiers: COPD type: unspecified COPD Qualified Code(s): J44.9 - Chronic obstructive pulmonary disease, unspecified Is this a current diagnosis for this admission?: Yes Plan: Generic Name Dose Route Start Last Admin Trade Name Freq PRN Reason Stop Dose Admin Patient Own Medication 1 puff 08/02/17 10:00 Fluticasone/Vilanterol [Breo Ellipta 100-25 Mcg Inh] IH 09/01/17 09:59 .DAILY IRENE Methylprednisolone Sodium Succinate 40 mg 08/06/17 22:00 08/07/17 10:18 Solu-Medrol Inj/Pf 40 Mg/1 Ml Sdv IV 09/05/17 21:59 40 mg Q12 IRENE Albuterol/Ipratropium 3 ml 08/01/17 20:20 08/02/17 11:51 Duoneb 3 Ml Ampul NEB 08/31/17 20:19 3 ml [id number] PRN FOR WHEEZING (3) Mass of lower lobe of right lung Is this a current diagnosis for this admission?: Yes Plan: Discussed with PCP he will again this issue with family whether patient has CT- guided needle biopsy undergoes fiberoptic bronchoscopy under conscious sedation or intubation the chances of her stay intubated are significantly elevated as the patient is a DNI not sure if this is the course one pursue further more if tissues obtain and is malignant a course should be determined
--- NOTE | 2017-08-08 20:09 | PDOC PROGRESS REPORT ---
Subjective Progress Note for:: 08/08/17 Subjective:: Patient continue to demonstrate episodes of confusion with care interruption. She removed her central venous access catheter since last clinical evaluation. I discussed with daughter at bedside regard decision to move forward about bronchoscopy in view of her DNR status and possible need for intubation after bronchoscopy. The issue of her definite diagnosis and course of treatment depend on the family and patient decision. Daughter and will meet with pulmonary interventional sale consultant tomorrow morning. Reason For Visit: CHF WITH HYPOXEMIA Physical Exam Vital Signs: Temp Pulse Resp BP Pulse Ox 97.4 F 86 16 137/88 H 90 L 08/08/17 16:47 08/08/17 16:47 08/08/17 16:47 08/08/17 16:47 08/08/17 16:47 Intake & Output 08/07/17 08/08/17 08/09/17 06:59 06:59 06:59 Intake Total 430 445 200 Output Total 600 Balance 430 -155 200 Weight 61.3 kg Physical Exam: General appearance: PRESENT: no acute distress, well-developed, well-nourished Head exam: PRESENT: atraumatic, normocephalic Eye exam: PRESENT: conjunctiva pink, EOMI, PERRLA. ABSENT: scleral icterus Mouth exam: PRESENT: moist Cardiovascular exam: PRESENT: RRR. ABSENT: diastolic murmur, rubs, systolic murmur Vascular exam: PRESENT: normal capillary refill, pallor GI/Abdominal exam: PRESENT: normal bowel sounds, soft. ABSENT: distended, guarding, mass, organomegaly, rebound, tenderness Extremities exam: ABSENT: pedal edema Neurological exam: PRESENT: Disoriented to place, alert, awake and corporative with evaluation at the time of my assessment. CN II-XII grossly intact. ABSENT : motor sensory deficit Psychiatric exam: PRESENT: agitated, anxious Skin exam: PRESENT: dry, intact, warm. ABSENT: cyanosis, rash Results Laboratory Results: 08/07/17 05:20 08/07/17 05:20 08/01/17 08/01/17 08/01/17 20:15 20:15 20:15 Creatine Kinase 89 CK-MB (CK-2) 3.00 Troponin I 0.078 NT-Pro-B Natriuret Pep [id number] H 08/02/17 08/02/17 08/02/17 02:24 02:24 08:56 Creatine Kinase 77 83 CK-MB (CK-2) 2.38 Troponin I 0.082 NT-Pro-B Natriuret Pep 08/02/17 08:56 Creatine Kinase CK-MB (CK-2) 2.77 Troponin I 0.067 NT-Pro-B Natriuret Pep Impressions: Chest/Abdomen CTA 08/02/17 00:00 IMPRESSION: 1. No pulmonary emboli. 2. Cardiomegaly. Dilated main pulmonary artery, may be seen with pulmonary arterial hypertension. Reflux of intravenous contrast into the IVC and the hepatic veins, suggestive of right heart failure. Irregular ulcerative plaque in the descending thoracic aorta. 3. Heterogeneous mass at the right lower lobe, worrisome for malignancy. Right hilar and mediastinal adenopathy. Further evaluation with PET/ CT recommended. 4. Bilateral pleural effusions, right more than left. 5. Bilateral airspace opacities, may represent atelectasis or pneumonia. 6. Emphysema. 7. Small abdominal ascites. Diffuse subcutaneous edema. Thoracentesis Ultrasound 08/02/17 18:14 IMPRESSION: SUCCESSFUL THORACENTESIS USING ULTRASOUND GUIDANCE. Chest X-Ray 08/03/17 14:25 IMPRESSION: 1. Stable central vascular access catheter. 2. Status post thoracentesis without evidence of re- accumulation or pneumothorax. Assessment & Plan - Diagnosis (1) Acute systolic CHF (congestive heart failure) Is this a current diagnosis for this admission?: Yes (2) COPD (chronic obstructive pulmonary disease) Qualifiers: COPD type: unspecified COPD Qualified Code(s): J44.9 - Chronic obstructive pulmonary disease, unspecified Is this a current diagnosis for this admission?: Yes (3) Severe hypoxemia Is this a current diagnosis for this admission?: Yes (4) HTN (hypertension) Qualifiers: Hypertension type: essential hypertension Qualified Code(s): I10 - Essential (primary) hypertension Is this a current diagnosis for this admission?: Yes (5) HLD (hyperlipidemia) Qualifiers: Hyperlipidemia type: unspecified Qualified Code(s): E78.5 - Hyperlipidemia , unspecified Is this a current diagnosis for this admission?: Yes (6) Osteoarthritis involving multiple joints on both sides of body Is this a current diagnosis for this admission?: Yes (7) Mass of lower lobe of right lung Is this a current diagnosis for this admission?: Yes (8) Bilateral pleural effusion Is this a current diagnosis for this admission?: Yes (9) CHF with right heart failure Is this a current diagnosis for this admission?: Yes - Time Time Spent with patient: 35 or more minutes Medications reviewed and adjusted accordingly: Yes Anticipated discharge: Home Within: Other - Inpatient Certification Based on my medical assessment, after consideration of the patient's comorbidities, presenting symptoms, or acuity I expect that the services needed warrant INPATIENT care.: Yes I certify that my determination is in accordance with my understanding of Medicare's requirements for reasonable and necessary INPATIENT services [42 CFR 412.3e].: Yes Medical Necessity: Need Close Monitoring Due to Risk of Patient Decompensation, Need For IV Fluids, Need For Continuous Telemetry Monitoring, Need for IV Antibiotics, Risk of Complication if Not Cared For in Hospital Post Hospital Care: D/C Double Needle Operator Documentation - Plan Summary Plan Summary: Continue current medication management. Further discussion with care team and family regard approach to her definite diagnosis, intensity of care and prognosis. Overall she has lung mass that I don't have a definite diagnosis or concrete care plan.
[2017-08-08] MEDS: TRAZODONE HCL 50 MG TABLET PO SCH (21:59)
--- NOTE | 2017-08-08 22:52 | Progress Note ---
Provider Note Provider Note: Palliative care follow up visit 08/08/17 2:30 PM Visit made to patients room where she was sleeping, but awoke when she heard me talking with her . I again tried to have a conversation with him about her care and options, but he again referred me to his daughter. He said he would ask the daughter to call me to discuss her mothers care, etc. I gave him another card to be sure he had the number. Have not heard from the daughter in 8 hours. Did not get call from her Saturday after I tried to talk with patients . Patient seems much more confused today and a little agitated. She remains frail and weak. She does not appear to be in condition for chemo. I would think the best option given her current condition both mentally and physically would be to provide comfort care with support for family to care for her. However, I will be happy to offer help and support for any decision the family wants to make. Will follow and await lead from daughter. Nonbillable visit today
[2017-08-08] MEDS ORDERED: HALOPERIDOL LACTATE INJ 5 MG/1 ML VIAL IV ONE (23:30)
[2017-08-09] MEDS: LANSOPRAZOLE 30 MG TAB.RAP.DR PO SCH (05:56)
[2017-08-09] MEDS: FUROSEMIDE 20 MG TABLET PO SCH (11:47)
[2017-08-09] MEDS: OXYBUTYNIN CHLORIDE 5 MG TABLET PO SCH ×2 (11:47→17:16)
[2017-08-09] MEDS: CEFEPIME 1 GM/D5W RTU 1 GM/50 ML RTUPB IV SCH (11:48)
[2017-08-09] MEDS: ENOXAPARIN SODIUM INJ 40 MG/0.4 ML DISP.SYRIN SUBCUT SCH (11:49)
[2017-08-09] MEDS: METHYLPREDNISOLONE INJ 40 MG/1 ML SDV IV SCH ×2 (11:49→22:51)
--- NOTE | 2017-08-09 12:53 | PDOC PROGRESS REPORT ---
Subjective Progress Note for:: 08/09/17 Subjective:: Confused lethargic Reason For Visit: CHF WITH HYPOXEMIA Physical Exam Vital Signs: Temp Pulse Resp BP Pulse Ox 97.4 F 80 16 135/81 H 92 08/09/17 08:12 08/09/17 10:17 08/09/17 10:17 08/09/17 08:12 08/09/17 12:16 Intake & Output 08/08/17 08/09/17 08/10/17 06:59 06:59 06:59 Intake Total 445 560 Output Total 600 Balance -155 560 Weight 61.3 kg 59.8 kg General appearance: PRESENT: no acute distress, disheveled, thin, well- developed. ABSENT: mild distress, morbidly obese, obese, severe distress Head exam: PRESENT: atraumatic, normocephalic Eye exam: PRESENT: conjunctiva pale, EOMI, scleral icterus. ABSENT: conjunctival injection, conjunctiva pink, nystagmus, periorbital swelling Mouth exam: PRESENT: dry mucosa, neck supple, tongue midline. ABSENT: laceration, moist Neck exam: ABSENT: carotid bruit, JVD, lymphadenopathy, thyromegaly, tracheal deviation, tracheostomy Respiratory exam: PRESENT: decreased breath sounds, prolonged expiratory phas, rales, rhonchi, symmetrical, unlabored, wheezes. ABSENT: accessory muscle use, chest wall tenderness, clear to auscultation kim, crackles, retraction, stridor , tachypnea Cardiovascular exam: ABSENT: irregular rhythm Pulses: PRESENT: normal radial pulses GI/Abdominal exam: PRESENT: normal bowel sounds, soft. ABSENT: distended, guarding, mass, organolmegaly, rebound, tenderness Extremities exam: ABSENT: calf tenderness, clubbing, joint swelling Musculoskeletal exam: ABSENT: deformity, dislocation Neurological exam: PRESENT: awake Skin exam: PRESENT: dry, warm Results Laboratory Results: 08/07/17 05:20 08/07/17 05:20 08/01/17 08/01/17 08/01/17 20:15 20:15 20:15 Creatine Kinase 89 CK-MB (CK-2) 3.00 Troponin I 0.078 NT-Pro-B Natriuret Pep 09384 H 08/02/17 08/02/17 08/02/17 02:24 02:24 08:56 Creatine Kinase 77 83 CK-MB (CK-2) 2.38 Troponin I 0.082 NT-Pro-B Natriuret Pep 08/02/17 08:56 Creatine Kinase CK-MB (CK-2) 2.77 Troponin I 0.067 NT-Pro-B Natriuret Pep Impressions: Chest/Abdomen CTA 08/02/17 00:00 IMPRESSION: 1. No pulmonary emboli. 2. Cardiomegaly. Dilated main pulmonary artery, may be seen with pulmonary arterial hypertension. Reflux of intravenous contrast into the IVC and the hepatic veins, suggestive of right heart failure. Irregular ulcerative plaque in the descending thoracic aorta. 3. Heterogeneous mass at the right lower lobe, worrisome for malignancy. Right hilar and mediastinal adenopathy. Further evaluation with PET/ CT recommended. 4. Bilateral pleural effusions, right more than left. 5. Bilateral airspace opacities, may represent atelectasis or pneumonia. 6. Emphysema. 7. Small abdominal ascites. Diffuse subcutaneous edema. Thoracentesis Ultrasound 08/02/17 18:14 IMPRESSION: SUCCESSFUL THORACENTESIS USING ULTRASOUND GUIDANCE. Chest X-Ray 08/03/17 14:25 IMPRESSION: 1. Stable central vascular access catheter. 2. Status post thoracentesis without evidence of re- accumulation or pneumothorax. Assessment & Plan - Diagnosis (1) CHF with right heart failure Is this a current diagnosis for this admission?: Yes Plan: Generic Name Dose Route Start Last Admin Trade Name Freq PRN Reason Stop Dose Admin Furosemide 20 mg 08/02/17 08:00 08/07/17 08:27 Lasix 20 Mg Tablet PO 09/01/17 07:59 20 mg QAM IRENE (2) COPD (chronic obstructive pulmonary disease) Qualifiers: COPD type: unspecified COPD Qualified Code(s): J44.9 - Chronic obstructive pulmonary disease, unspecified Is this a current diagnosis for this admission?: Yes Plan: Generic Name Dose Route Start Last Admin Trade Name Freq PRN Reason Stop Dose Admin Patient Own Medication 1 puff 08/02/17 10:00 Fluticasone/Vilanterol [Breo Ellipta 100-25 Mcg Inh] IH 09/01/17 09:59 .DAILY IRENE Methylprednisolone Sodium Succinate 40 mg 08/06/17 22:00 08/07/17 10:18 Solu-Medrol Inj/Pf 40 Mg/1 Ml Sdv IV 09/05/17 21:59 40 mg Q12 IRENE Albuterol/Ipratropium 3 ml 08/01/17 20:20 08/02/17 11:51 Duoneb 3 Ml Ampul NEB 08/31/17 20:19 3 ml [id number] PRN FOR WHEEZING (3) Mass of lower lobe of right lung Is this a current diagnosis for this admission?: Yes Plan: Prolonged discussion with family members in regards to lung mass; bronchoscopy it's associated risk and benefit; possibility of a malignancy and probable treatment options should this be diagnosed: after consideration family decided they would probably not represent the patient's wishes and it will be in her best interest to not pursue a diagnosis at this time. Also strongly considering to making her DNR completely and not just a DNI will discuss this with the primary care physician - Time Time Spent with patient: 55
--- NOTE | 2017-08-09 15:00 | PDOC PROGRESS REPORT ---
Subjective Progress Note for:: 08/09/17 Subjective:: There was episode of agitation last night with need for Haloperidol IV administration. She appeared comfortable and appropriate at this time. Remain on supplemental oxygen via nasal cannula. I had further discussion with spouse at bedside and after deliberation with dope dry house operator are agreeable to hospice placement for further care at this time on presumptive diagnosis of lung Cancer. Reason For Visit: CHF WITH HYPOXEMIA Physical Exam Vital Signs: Temp Pulse Resp BP Pulse Ox 97.3 F 90 20 152/86 H 88 L 08/09/17 12:31 08/09/17 12:31 08/09/17 12:31 08/09/17 12:31 08/09/17 12:31 Intake & Output 08/08/17 08/09/17 08/10/17 06:59 06:59 06:59 Intake Total 445 560 Output Total 600 Balance -155 560 Weight 61.3 kg 59.8 kg Physical Exam: General appearance: PRESENT: no acute distress, well-developed, well-nourished Head exam: PRESENT: atraumatic, normocephalic Eye exam: PRESENT: conjunctiva pink, EOMI, PERRLA. ABSENT: scleral icterus Mouth exam: PRESENT: moist Cardiovascular exam: PRESENT: RRR. ABSENT: diastolic murmur, rubs, systolic murmur Vascular exam: PRESENT: normal capillary refill, pallor GI/Abdominal exam: PRESENT: normal bowel sounds, soft. ABSENT: distended, guarding, mass, organomegaly, rebound, tenderness Extremities exam: ABSENT: pedal edema Neurological exam: PRESENT: Disoriented to place, alert, awake and corporative with evaluation at the time of my assessment. CN II-XII grossly intact. ABSENT : motor sensory deficit Psychiatric exam: PRESENT: agitated, anxious Skin exam: PRESENT: dry, intact, warm. ABSENT: cyanosis, rash Results Laboratory Results: 08/07/17 05:20 08/07/17 05:20 08/01/17 08/01/17 08/01/17 20:15 20:15 20:15 Creatine Kinase 89 CK-MB (CK-2) 3.00 Troponin I 0.078 NT-Pro-B Natriuret Pep [id number] H 08/02/17 08/02/17 08/02/17 02:24 02:24 08:56 Creatine Kinase 77 83 CK-MB (CK-2) 2.38 Troponin I 0.082 NT-Pro-B Natriuret Pep 08/02/17 08:56 Creatine Kinase CK-MB (CK-2) 2.77 Troponin I 0.067 NT-Pro-B Natriuret Pep Impressions: Chest/Abdomen CTA 08/02/17 00:00 IMPRESSION: 1. No pulmonary emboli. 2. Cardiomegaly. Dilated main pulmonary artery, may be seen with pulmonary arterial hypertension. Reflux of intravenous contrast into the IVC and the hepatic veins, suggestive of right heart failure. Irregular ulcerative plaque in the descending thoracic aorta. 3. Heterogeneous mass at the right lower lobe, worrisome for malignancy. Right hilar and mediastinal adenopathy. Further evaluation with PET/ CT recommended. 4. Bilateral pleural effusions, right more than left. 5. Bilateral airspace opacities, may represent atelectasis or pneumonia. 6. Emphysema. 7. Small abdominal ascites. Diffuse subcutaneous edema. Thoracentesis Ultrasound 08/02/17 18:14 IMPRESSION: SUCCESSFUL THORACENTESIS USING ULTRASOUND GUIDANCE. Chest X-Ray 08/03/17 14:25 IMPRESSION: 1. Stable central vascular access catheter. 2. Status post thoracentesis without evidence of re- accumulation or pneumothorax. Assessment & Plan - Diagnosis (1) Acute systolic CHF (congestive heart failure) Is this a current diagnosis for this admission?: Yes (2) COPD (chronic obstructive pulmonary disease) Qualifiers: COPD type: unspecified COPD Qualified Code(s): J44.9 - Chronic obstructive pulmonary disease, unspecified Is this a current diagnosis for this admission?: Yes (3) Severe hypoxemia Is this a current diagnosis for this admission?: Yes (4) HTN (hypertension) Qualifiers: Hypertension type: essential hypertension Qualified Code(s): I10 - Essential (primary) hypertension Is this a current diagnosis for this admission?: Yes (5) HLD (hyperlipidemia) Qualifiers: Hyperlipidemia type: unspecified Qualified Code(s): E78.5 - Hyperlipidemia , unspecified Is this a current diagnosis for this admission?: Yes (6) Osteoarthritis involving multiple joints on both sides of body Is this a current diagnosis for this admission?: Yes (7) Mass of lower lobe of right lung Is this a current diagnosis for this admission?: Yes (8) Bilateral pleural effusion Is this a current diagnosis for this admission?: Yes (9) CHF with right heart failure Is this a current diagnosis for this admission?: Yes - Time Time Spent with patient: 35 or more minutes Medications reviewed and adjusted accordingly: Yes Anticipated discharge: Hospice Within: Other - Inpatient Certification Based on my medical assessment, after consideration of the patient's comorbidities, presenting symptoms, or acuity I expect that the services needed warrant INPATIENT care.: Yes I certify that my determination is in accordance with my understanding of Medicare's requirements for reasonable and necessary INPATIENT services [42 CFR 412.3e].: Yes Medical Necessity: Need Close Monitoring Due to Risk of Patient Decompensation, Need For IV Fluids, Need For Continuous Telemetry Monitoring, Need for IV Antibiotics, Risk of Complication if Not Cared For in Hospital Post Hospital Care: D/C Internet Retailer Documentation - Plan Summary Plan Summary: I will refer patient to hospice care program as per family request in view of limited options regarding treatment and poor prognosis.
--- NOTE | 2017-08-09 15:57 | Progress Note ---
Provider Note Provider Note: Palliative care follow up note. Patient resting in her bed without distress. states he has spoken with Dr. Walsh and they have decided to take patient home with hospice care. He is happy with this decision. He says his daughter will call me soon to discuss the services and plans. Mr. Chadwick seems very releived and feels this ia the right decision for his , I agreed and feel she will get good care at home. He does not have oxygen for her at home or any DME. I assured him that hospice will help with this and with medications to keep her comfortable. Appreciate this opportunity to participate in care and to help facilitate care at home.
[2017-08-09] MEDS: TRAZODONE HCL 50 MG TABLET PO SCH (22:51)
[2017-08-10] MEDS: LANSOPRAZOLE 30 MG TAB.RAP.DR PO SCH (05:23)
[2017-08-10] MEDS: FUROSEMIDE 20 MG TABLET PO SCH (08:03)
[2017-08-10] MEDS: METHYLPREDNISOLONE INJ 40 MG/1 ML SDV IV SCH ×2 (10:02→23:21)
[2017-08-10] MEDS: ENOXAPARIN SODIUM INJ 40 MG/0.4 ML DISP.SYRIN SUBCUT SCH (10:02)
[2017-08-10] MEDS: OXYBUTYNIN CHLORIDE 5 MG TABLET PO SCH ×2 (10:02→17:38)
--- NOTE | 2017-08-10 11:47 | PDOC PROGRESS REPORT ---
Subjective Progress Note for:: 08/10/17 Subjective:: No reported difficulty with breathing. Remain on supplemental oxygen. No reported fever or chills. Remain on antibiotic therapy. Family decided to take patient home on home hospice program. Reason For Visit: CHF WITH HYPOXEMIA Physical Exam Vital Signs: Temp Pulse Resp BP Pulse Ox 97.4 F 72 14 173/94 H 94 08/10/17 07:59 08/10/17 07:59 08/10/17 07:59 08/10/17 07:59 08/10/17 09:41 Intake & Output 08/09/17 08/10/17 08/11/17 06:59 06:59 06:59 Intake Total 560 712 Balance 560 712 Weight 59.8 kg Physical Exam: General appearance: PRESENT: no acute distress, well-developed, well-nourished Head exam: PRESENT: atraumatic, normocephalic Eye exam: PRESENT: conjunctiva pink, EOMI, PERRLA. ABSENT: scleral icterus Mouth exam: PRESENT: moist Cardiovascular exam: PRESENT: RRR. ABSENT: diastolic murmur, rubs, systolic murmur Vascular exam: PRESENT: normal capillary refill, pallor GI/Abdominal exam: PRESENT: normal bowel sounds, soft. ABSENT: distended, guarding, mass, organomegaly, rebound, tenderness Extremities exam: ABSENT: pedal edema Neurological exam: PRESENT: Disoriented to place, alert, awake and corporative with evaluation at the time of my assessment. CN II-XII grossly intact. ABSENT : motor sensory deficit Psychiatric exam: PRESENT: agitated, anxious Skin exam: PRESENT: dry, intact, warm. ABSENT: cyanosis, rash Results Laboratory Results: 08/07/17 05:20 08/07/17 05:20 08/01/17 08/01/17 08/01/17 20:15 20:15 20:15 Creatine Kinase 89 CK-MB (CK-2) 3.00 Troponin I 0.078 NT-Pro-B Natriuret Pep [id number] H 08/02/17 08/02/17 08/02/17 02:24 02:24 08:56 Creatine Kinase 77 83 CK-MB (CK-2) 2.38 Troponin I 0.082 NT-Pro-B Natriuret Pep 08/02/17 08:56 Creatine Kinase CK-MB (CK-2) 2.77 Troponin I 0.067 NT-Pro-B Natriuret Pep Impressions: Chest/Abdomen CTA 08/02/17 00:00 IMPRESSION: 1. No pulmonary emboli. 2. Cardiomegaly. Dilated main pulmonary artery, may be seen with pulmonary arterial hypertension. Reflux of intravenous contrast into the IVC and the hepatic veins, suggestive of right heart failure. Irregular ulcerative plaque in the descending thoracic aorta. 3. Heterogeneous mass at the right lower lobe, worrisome for malignancy. Right hilar and mediastinal adenopathy. Further evaluation with PET/ CT recommended. 4. Bilateral pleural effusions, right more than left. 5. Bilateral airspace opacities, may represent atelectasis or pneumonia. 6. Emphysema. 7. Small abdominal ascites. Diffuse subcutaneous edema. Thoracentesis Ultrasound 08/02/17 18:14 IMPRESSION: SUCCESSFUL THORACENTESIS USING ULTRASOUND GUIDANCE. Chest X-Ray 08/03/17 14:25 IMPRESSION: 1. Stable central vascular access catheter. 2. Status post thoracentesis without evidence of re- accumulation or pneumothorax. Assessment & Plan - Diagnosis (1) Acute systolic CHF (congestive heart failure) Is this a current diagnosis for this admission?: Yes (2) COPD (chronic obstructive pulmonary disease) Qualifiers: COPD type: unspecified COPD Qualified Code(s): J44.9 - Chronic obstructive pulmonary disease, unspecified Is this a current diagnosis for this admission?: Yes (3) Severe hypoxemia Is this a current diagnosis for this admission?: Yes (4) HTN (hypertension) Qualifiers: Hypertension type: essential hypertension Qualified Code(s): I10 - Essential (primary) hypertension Is this a current diagnosis for this admission?: Yes (5) HLD (hyperlipidemia) Qualifiers: Hyperlipidemia type: unspecified Qualified Code(s): E78.5 - Hyperlipidemia , unspecified Is this a current diagnosis for this admission?: Yes (6) Osteoarthritis involving multiple joints on both sides of body Is this a current diagnosis for this admission?: Yes (7) Mass of lower lobe of right lung Is this a current diagnosis for this admission?: Yes (8) Bilateral pleural effusion Is this a current diagnosis for this admission?: Yes (9) CHF with right heart failure Is this a current diagnosis for this admission?: Yes - Time Time Spent with patient: 25-34 minutes Medications reviewed and adjusted accordingly: Yes Anticipated discharge: Hospice Within: within 72 hours - Inpatient Certification Based on my medical assessment, after consideration of the patient's comorbidities, presenting symptoms, or acuity I expect that the services needed warrant INPATIENT care.: Yes I certify that my determination is in accordance with my understanding of Medicare's requirements for reasonable and necessary INPATIENT services [42 CFR 412.3e].: Yes Medical Necessity: Need Close Monitoring Due to Risk of Patient Decompensation, Need For Continuous Telemetry Monitoring, Need for IV Antibiotics, Risk of Complication if Not Cared For in Hospital Post Hospital Care: D/C Exhibit Specialist Documentation - Plan Summary Plan Summary: Continue all current medication management. Continue efforts of disposition onto home hospice placement.
[2017-08-10] MEDS: TRAZODONE HCL 50 MG TABLET PO SCH (23:22)
[2017-08-11] MEDS: LANSOPRAZOLE 30 MG TAB.RAP.DR PO SCH (05:00)
[2017-08-11] MEDS: FUROSEMIDE 20 MG TABLET PO SCH (07:55)
[2017-08-11] MEDS: OXYBUTYNIN CHLORIDE 5 MG TABLET PO SCH ×2 (10:05→17:08)
[2017-08-11] MEDS: METHYLPREDNISOLONE INJ 40 MG/1 ML SDV IV SCH (10:06)
[2017-08-11] MEDS: ENOXAPARIN SODIUM INJ 40 MG/0.4 ML DISP.SYRIN SUBCUT SCH (10:06)
--- NOTE | 2017-08-11 11:08 | PDOC PROGRESS REPORT ---
Subjective Progress Note for:: 08/11/17 Subjective:: No reported fever or chills. No difficulty with breathing. Remain on supplemental oxygen and antibiotic therapy. Reason For Visit: CHF WITH HYPOXEMIA Physical Exam Vital Signs: Temp Pulse Resp BP Pulse Ox 97.5 F 89 16 153/99 H 96 08/11/17 07:54 08/11/17 07:54 08/11/17 07:54 08/11/17 07:54 08/11/17 09:45 Intake & Output 08/10/17 08/11/17 08/12/17 06:59 06:59 06:59 Intake Total 712 820 Balance 712 820 Weight 59 kg Physical Exam: General appearance: PRESENT: no acute distress, well-developed, well-nourished Head exam: PRESENT: atraumatic, normocephalic Eye exam: PRESENT: conjunctiva pink, EOMI, PERRLA. ABSENT: scleral icterus Mouth exam: PRESENT: moist Cardiovascular exam: PRESENT: RRR. ABSENT: diastolic murmur, rubs, systolic murmur Vascular exam: PRESENT: normal capillary refill, pallor GI/Abdominal exam: PRESENT: normal bowel sounds, soft. ABSENT: distended, guarding, mass, organomegaly, rebound, tenderness Extremities exam: ABSENT: pedal edema Neurological exam: PRESENT: Disoriented to place, alert, awake and corporative with evaluation at the time of my assessment. CN II-XII grossly intact. ABSENT : motor sensory deficit Psychiatric exam: PRESENT: agitated, anxious Skin exam: PRESENT: dry, intact, warm. ABSENT: cyanosis, rash Results Laboratory Results: 08/07/17 05:20 08/07/17 05:20 08/01/17 08/01/17 08/01/17 20:15 20:15 20:15 Creatine Kinase 89 CK-MB (CK-2) 3.00 Troponin I 0.078 NT-Pro-B Natriuret Pep [id number] H 08/02/17 08/02/17 08/02/17 02:24 02:24 08:56 Creatine Kinase 77 83 CK-MB (CK-2) 2.38 Troponin I 0.082 NT-Pro-B Natriuret Pep 08/02/17 08:56 Creatine Kinase CK-MB (CK-2) 2.77 Troponin I 0.067 NT-Pro-B Natriuret Pep Impressions: Chest/Abdomen CTA 08/02/17 00:00 IMPRESSION: 1. No pulmonary emboli. 2. Cardiomegaly. Dilated main pulmonary artery, may be seen with pulmonary arterial hypertension. Reflux of intravenous contrast into the IVC and the hepatic veins, suggestive of right heart failure. Irregular ulcerative plaque in the descending thoracic aorta. 3. Heterogeneous mass at the right lower lobe, worrisome for malignancy. Right hilar and mediastinal adenopathy. Further evaluation with PET/ CT recommended. 4. Bilateral pleural effusions, right more than left. 5. Bilateral airspace opacities, may represent atelectasis or pneumonia. 6. Emphysema. 7. Small abdominal ascites. Diffuse subcutaneous edema. Thoracentesis Ultrasound 08/02/17 18:14 IMPRESSION: SUCCESSFUL THORACENTESIS USING ULTRASOUND GUIDANCE. Chest X-Ray 08/03/17 14:25 IMPRESSION: 1. Stable central vascular access catheter. 2. Status post thoracentesis without evidence of re- accumulation or pneumothorax. Assessment & Plan - Diagnosis (1) Acute systolic CHF (congestive heart failure) Is this a current diagnosis for this admission?: Yes (2) COPD (chronic obstructive pulmonary disease) Qualifiers: COPD type: unspecified COPD Qualified Code(s): J44.9 - Chronic obstructive pulmonary disease, unspecified Is this a current diagnosis for this admission?: Yes (3) Severe hypoxemia Is this a current diagnosis for this admission?: Yes (4) HTN (hypertension) Qualifiers: Hypertension type: essential hypertension Qualified Code(s): I10 - Essential (primary) hypertension Is this a current diagnosis for this admission?: Yes (5) HLD (hyperlipidemia) Qualifiers: Hyperlipidemia type: unspecified Qualified Code(s): E78.5 - Hyperlipidemia , unspecified Is this a current diagnosis for this admission?: Yes (6) Osteoarthritis involving multiple joints on both sides of body Is this a current diagnosis for this admission?: Yes (7) Mass of lower lobe of right lung Is this a current diagnosis for this admission?: Yes (8) Bilateral pleural effusion Is this a current diagnosis for this admission?: Yes (9) CHF with right heart failure Is this a current diagnosis for this admission?: Yes - Time Time Spent with patient: 25-34 minutes Medications reviewed and adjusted accordingly: Yes Anticipated discharge: Home, Hospice Within: within 24 hours - Inpatient Certification Based on my medical assessment, after consideration of the patient's comorbidities, presenting symptoms, or acuity I expect that the services needed warrant INPATIENT care.: Yes I certify that my determination is in accordance with my understanding of Medicare's requirements for reasonable and necessary INPATIENT services [42 CFR 412.3e].: Yes Medical Necessity: Need Close Monitoring Due to Risk of Patient Decompensation, Need For IV Fluids, Need For Continuous Telemetry Monitoring, Need for IV Antibiotics, Risk of Complication if Not Cared For in Hospital Post Hospital Care: D/C Program Technician Documentation - Plan Summary Plan Summary: See attending physician orders
[2017-08-11] MEDS ORDERED: PREDNISONE 10 MG TABLET PO ONE (13:00)
[2017-08-11] MEDS: TRAZODONE HCL 50 MG TABLET PO SCH (21:56)
[2017-08-12] MEDS: LANSOPRAZOLE 30 MG TAB.RAP.DR PO SCH (05:22)
[2017-08-12] MEDS: PREDNISONE 10 MG TABLET PO SCH (10:45)
[2017-08-12] MEDS: OXYBUTYNIN CHLORIDE 5 MG TABLET PO SCH ×2 (10:45→18:29)
[2017-08-12] MEDS: ENOXAPARIN SODIUM INJ 40 MG/0.4 ML DISP.SYRIN SUBCUT SCH (10:45)
[2017-08-12] MEDS: FUROSEMIDE 20 MG TABLET PO SCH (10:45)
--- NOTE | 2017-08-12 12:52 | PDOC PROGRESS REPORT ---
Subjective Progress Note for:: 08/12/17 Subjective:: No reported fever or chills. No difficulty with breathing. Remain on supplemental oxygen. Spouse at bedside. Family decided to go with [facility] agency for home hospice program. Reason For Visit: CHF WITH HYPOXEMIA Physical Exam Vital Signs: Temp Pulse Resp BP Pulse Ox 97.3 F 100 18 160/96 H 93 08/12/17 11:39 08/12/17 11:39 08/12/17 11:39 08/12/17 11:39 08/12/17 11:39 Intake & Output 08/11/17 08/12/17 08/13/17 06:59 06:59 06:59 Intake Total 820 520 Balance 820 520 Weight 59 kg 58.6 kg Results Laboratory Results: 08/07/17 05:20 08/07/17 05:20 08/01/17 08/01/17 08/01/17 20:15 20:15 20:15 Creatine Kinase 89 CK-MB (CK-2) 3.00 Troponin I 0.078 NT-Pro-B Natriuret Pep 39653 H 08/02/17 08/02/17 08/02/17 02:24 02:24 08:56 Creatine Kinase 77 83 CK-MB (CK-2) 2.38 Troponin I 0.082 NT-Pro-B Natriuret Pep 08/02/17 08:56 Creatine Kinase CK-MB (CK-2) 2.77 Troponin I 0.067 NT-Pro-B Natriuret Pep Impressions: Chest/Abdomen CTA 08/02/17 00:00 IMPRESSION: 1. No pulmonary emboli. 2. Cardiomegaly. Dilated main pulmonary artery, may be seen with pulmonary arterial hypertension. Reflux of intravenous contrast into the IVC and the hepatic veins, suggestive of right heart failure. Irregular ulcerative plaque in the descending thoracic aorta. 3. Heterogeneous mass at the right lower lobe, worrisome for malignancy. Right hilar and mediastinal adenopathy. Further evaluation with PET/ CT recommended. 4. Bilateral pleural effusions, right more than left. 5. Bilateral airspace opacities, may represent atelectasis or pneumonia. 6. Emphysema. 7. Small abdominal ascites. Diffuse subcutaneous edema. Thoracentesis Ultrasound 08/02/17 18:14 IMPRESSION: SUCCESSFUL THORACENTESIS USING ULTRASOUND GUIDANCE. Chest X-Ray 08/03/17 14:25 IMPRESSION: 1. Stable central vascular access catheter. 2. Status post thoracentesis without evidence of re- accumulation or pneumothorax. Assessment & Plan - Diagnosis (1) Acute systolic CHF (congestive heart failure) Is this a current diagnosis for this admission?: Yes (2) COPD (chronic obstructive pulmonary disease) Qualifiers: COPD type: unspecified COPD Qualified Code(s): J44.9 - Chronic obstructive pulmonary disease, unspecified Is this a current diagnosis for this admission?: Yes (3) Severe hypoxemia Is this a current diagnosis for this admission?: Yes (4) HTN (hypertension) Qualifiers: Hypertension type: essential hypertension Qualified Code(s): I10 - Essential (primary) hypertension Is this a current diagnosis for this admission?: Yes (5) HLD (hyperlipidemia) Qualifiers: Hyperlipidemia type: unspecified Qualified Code(s): E78.5 - Hyperlipidemia , unspecified Is this a current diagnosis for this admission?: Yes (6) Osteoarthritis involving multiple joints on both sides of body Is this a current diagnosis for this admission?: Yes (7) Mass of lower lobe of right lung Is this a current diagnosis for this admission?: Yes (8) Bilateral pleural effusion Is this a current diagnosis for this admission?: Yes (9) CHF with right heart failure Is this a current diagnosis for this admission?: Yes - Time Time Spent with patient: 25-34 minutes Medications reviewed and adjusted accordingly: Yes Anticipated discharge: Home, Hospice Within: within 24 hours - Inpatient Certification Based on my medical assessment, after consideration of the patient's comorbidities, presenting symptoms, or acuity I expect that the services needed warrant INPATIENT care.: Yes I certify that my determination is in accordance with my understanding of Medicare's requirements for reasonable and necessary INPATIENT services [42 CFR 412.3e].: Yes Medical Necessity: Need Close Monitoring Due to Risk of Patient Decompensation, Need For Continuous Telemetry Monitoring, Risk of Complication if Not Cared For in Hospital Post Hospital Care: D/C Dermatology Specialist Documentation - Plan Summary Plan Summary: Patient remain on DNR status. associate financial planner will follow up with [facility] agency for admission status. Patient will need hospital bed and supplemental oxygen at home upon discharge. Family is requesting discharge tomorrow when her case will be open by [facility] agency.
--- NOTE | 2017-08-12 13:22 | PDOC PROGRESS REPORT ---
Subjective Progress Note for:: 08/12/17 Subjective:: Resting comfortably Reason For Visit: CHF WITH HYPOXEMIA Physical Exam Vital Signs: Temp Pulse Resp BP Pulse Ox 97.4 F 88 18 149/75 H 94 08/12/17 08:00 08/12/17 09:52 08/12/17 09:52 08/12/17 08:00 08/12/17 09:52 Intake & Output 08/11/17 08/12/17 08/13/17 06:59 06:59 06:59 Intake Total 820 520 Balance 820 520 Weight 59 kg 58.6 kg General appearance: PRESENT: no acute distress, disheveled, thin, well- developed. ABSENT: cooperative, mild distress, morbidly obese, obese, severe distress Head exam: PRESENT: atraumatic, normocephalic Eye exam: PRESENT: conjunctiva pale, EOMI. ABSENT: conjunctival injection, conjunctiva pink, nystagmus, periorbital swelling Mouth exam: PRESENT: dry mucosa, neck supple, tongue midline. ABSENT: laceration, moist Neck exam: ABSENT: carotid bruit, JVD, lymphadenopathy, thyromegaly, tracheal deviation, tracheostomy Respiratory exam: PRESENT: decreased breath sounds, prolonged expiratory phas, rhonchi, symmetrical, unlabored, wheezes. ABSENT: accessory muscle use, chest wall tenderness, clear to auscultation kim, crackles, rales, retraction, stridor Cardiovascular exam: PRESENT: RRR, +S1, +S2. ABSENT: irregular rhythm, rubs Pulses: PRESENT: normal radial pulses GI/Abdominal exam: PRESENT: normal bowel sounds, soft. ABSENT: distended, guarding, mass, organolmegaly, rebound, tenderness Extremities exam: ABSENT: calf tenderness, clubbing, joint swelling Musculoskeletal exam: ABSENT: deformity, dislocation Skin exam: PRESENT: dry, warm Results Laboratory Results: 08/07/17 05:20 08/07/17 05:20 08/01/17 08/01/17 08/01/17 20:15 20:15 20:15 Creatine Kinase 89 CK-MB (CK-2) 3.00 Troponin I 0.078 NT-Pro-B Natriuret Pep 30276 H 08/02/17 08/02/17 08/02/17 02:24 02:24 08:56 Creatine Kinase 77 83 CK-MB (CK-2) 2.38 Troponin I 0.082 NT-Pro-B Natriuret Pep 08/02/17 08:56 Creatine Kinase CK-MB (CK-2) 2.77 Troponin I 0.067 NT-Pro-B Natriuret Pep Impressions: Chest/Abdomen CTA 08/02/17 00:00 IMPRESSION: 1. No pulmonary emboli. 2. Cardiomegaly. Dilated main pulmonary artery, may be seen with pulmonary arterial hypertension. Reflux of intravenous contrast into the IVC and the hepatic veins, suggestive of right heart failure. Irregular ulcerative plaque in the descending thoracic aorta. 3. Heterogeneous mass at the right lower lobe, worrisome for malignancy. Right hilar and mediastinal adenopathy. Further evaluation with PET/ CT recommended. 4. Bilateral pleural effusions, right more than left. 5. Bilateral airspace opacities, may represent atelectasis or pneumonia. 6. Emphysema. 7. Small abdominal ascites. Diffuse subcutaneous edema. Thoracentesis Ultrasound 08/02/17 18:14 IMPRESSION: SUCCESSFUL THORACENTESIS USING ULTRASOUND GUIDANCE. Chest X-Ray 08/03/17 14:25 IMPRESSION: 1. Stable central vascular access catheter. 2. Status post thoracentesis without evidence of re- accumulation or pneumothorax. Assessment & Plan - Diagnosis (1) CHF with right heart failure Is this a current diagnosis for this admission?: Yes Plan: Generic Name Dose Route Start Last Admin Trade Name Freq PRN Reason Stop Dose Admin Furosemide 20 mg 08/02/17 08:00 08/07/17 08:27 Lasix 20 Mg Tablet PO 09/01/17 07:59 20 mg QAM IRENE (2) COPD (chronic obstructive pulmonary disease) Qualifiers: COPD type: unspecified COPD Qualified Code(s): J44.9 - Chronic obstructive pulmonary disease, unspecified Is this a current diagnosis for this admission?: Yes Plan: Generic Name Dose Route Start Last Admin Trade Name Freq PRN Reason Stop Dose Admin Patient Own Medication 1 puff 08/02/17 10:00 Fluticasone/Vilanterol [Breo Ellipta 100-25 Mcg Inh] IH 09/01/17 09:59 .DAILY IRENE Methylprednisolone Sodium Succinate 40 mg 08/06/17 22:00 08/07/17 10:18 Solu-Medrol Inj/Pf 40 Mg/1 Ml Sdv IV 09/05/17 21:59 40 mg Q12 IRENE Albuterol/Ipratropium 3 ml 08/01/17 20:20 08/02/17 11:51 Duoneb 3 Ml Ampul NEB 08/31/17 20:19 3 ml [id number] PRN FOR WHEEZING (3) Mass of lower lobe of right lung Is this a current diagnosis for this admission?: Yes Plan: Prolonged discussion with family members in regards to lung mass; bronchoscopy it's associated risk and benefit; possibility of a malignancy and probable treatment options should this be diagnosed: after consideration family decided they would probably not represent the patient's wishes and it will be in her best interest to not pursue a diagnosis at this time. Also strongly considering to making her DNR completely and not just a DNI will discuss this with the primary care physician
[2017-08-12] MEDS: TRAZODONE HCL 50 MG TABLET PO SCH (22:23)
[2017-08-13 05:30] VITALS: BP 131/80
[2017-08-13] MEDS: LANSOPRAZOLE 30 MG TAB.RAP.DR PO SCH (06:12)
[2017-08-13] MEDS: OXYBUTYNIN CHLORIDE 5 MG TABLET PO SCH (11:06)
[2017-08-13] MEDS: FUROSEMIDE 20 MG TABLET PO SCH (11:07)
[2017-08-13] MEDS: PREDNISONE 10 MG TABLET PO SCH (11:07)
[2017-08-13] MEDS: ENOXAPARIN SODIUM INJ 40 MG/0.4 ML DISP.SYRIN SUBCUT SCH (11:08)
--- NOTE | 2017-08-13 14:40 | PDOC DISCHARGE SUMMARY ---
General - Admit/Disc Date/PCP Admission Date/Primary Care Provider: 08/01/17 TAMIE DEL CASTILLO MD Discharge Date: 08/13/17 - Discharge Diagnosis (1) Acute systolic CHF (congestive heart failure) Is this a current diagnosis for this admission?: Yes (2) COPD (chronic obstructive pulmonary disease) Is this a current diagnosis for this admission?: Yes (3) Severe hypoxemia Is this a current diagnosis for this admission?: Yes (4) HTN (hypertension) Is this a current diagnosis for this admission?: Yes (5) HLD (hyperlipidemia) Is this a current diagnosis for this admission?: Yes (6) Osteoarthritis involving multiple joints on both sides of body Is this a current diagnosis for this admission?: Yes (7) Mass of lower lobe of right lung Is this a current diagnosis for this admission?: Yes (8) Bilateral pleural effusion Is this a current diagnosis for this admission?: Yes (9) CHF with right heart failure Is this a current diagnosis for this admission?: Yes - Additional Information Resuscitation Status: Do Not Resuscitate - I had extensive discussion with patient at bedside in concert with family and nursing staff. Patient expressed wish to be a DNR status at this time. Discharge Diet: As Tolerated Discharge Activity: Activity As Tolerated, Balance Activity w/Rest, Energy Conservation, Weigh Daily Home Medications: Fluticasone/Vilanterol [Breo Ellipta 100-25 Mcg INH] 1 puff IH DAILY 08/01/17 Furosemide [Lasix 20 mg Tablet] 20 mg PO QAM 08/01/17 Oxybutynin Chloride [Ditropan 5 mg Tablet] 5 mg PO BID 08/01/17 History of Present Illness History of Present Illness: RHETT HORAN is a 76 year old female patient known to my practice who presented to the office again today with complaint of worsening bilateral leg swelling and difficulty with breathing. Patient denied any chest pain but reported productive coughing of yellowish brown sputum, wheezing, fatigue, excessive daytime sleepiness, and snoring. Patient denied any fever or chills. She reported worsening of shortness of breath with exertion. She claimed stoppage of cigarette smoking few days ago. There is associated poor appetite and oral intake, running nose and sneezing, generalized aches and pain, and light headedness. Her initial evaluation in the office did revealed pulse oximetry on room air at 73%, HR 99/min with pain rating at 10/10. Also, patient appeared toxic and ill looking. In view of her recurrent office presentation and evaluation findings, she was advised hospitalization for further evaluation and management. Hospital Course Hospital Course: Patient was admitted for bilateral leg swelling, difficulty with breathing and significnat hypoxemia. her initial admission consideration was CHF. Her echocardiogram did confirm CHF with normal LVEF. Her chest X ray and CT scan of chest revealed significant pleural effusion with need for right thoracentesis. There was discovery of right lower lobe mass with hilar and mediastinal adenopathy. Attempts at biopsy was not possible by either CT scan guidance or bronchoscopy due to patient's morbidity and associated high risk for eventual intubation. Patient remain on DNR status since admission. She was seen in consultation by [facility]. Family eventually decide to go with [facility] for home hospice care. There is no tissue confirmation for cancer at this time. If family is interested in definite diagnosis of cause of , autopsy may be performed. Her further care will be under the directive of the hospice program assigned physician. Physical Exam Vital Signs: Temp Pulse Resp BP Pulse Ox 97.5 F 87 19 131/80 H 96 08/13/17 04:10 08/13/17 07:00 08/13/17 04:10 08/13/17 04:10 08/13/17 04:10 Intake & Output 08/12/17 08/13/17 08/14/17 06:59 06:59 06:59 Intake Total 520 506 480 Balance 520 506 480 Weight 58.6 kg Physical Exam: General appearance: PRESENT: no acute distress Head exam: PRESENT: atraumatic, normocephalic Eye exam: PRESENT: conjunctiva pink, EOMI, PERRLA. ABSENT: scleral icterus Mouth exam: PRESENT: moist Cardiovascular exam: PRESENT: RRR. ABSENT: diastolic murmur, rubs, systolic murmur Vascular exam: PRESENT: normal capillary refill, pallor GI/Abdominal exam: PRESENT: normal bowel sounds, soft. ABSENT: distended, guarding, mass, organomegaly, rebound, tenderness Extremities exam: ABSENT: pedal edema Neurological exam: PRESENT: Disoriented to place, alert, awake and corporative with evaluation at the time of my assessment. CN II-XII grossly intact. ABSENT : motor sensory deficit Psychiatric exam: PRESENT: agitated, anxious Skin exam: PRESENT: dry, intact, warm. ABSENT: cyanosis, rash Results Laboratory Results: 08/07/17 05:20 08/07/17 05:20 08/01/17 08/01/17 08/01/17 20:15 20:15 20:15 Creatine Kinase 89 CK-MB (CK-2) 3.00 Troponin I 0.078 NT-Pro-B Natriuret Pep 01718 H 08/02/17 08/02/17 08/02/17 02:24 02:24 08:56 Creatine Kinase 77 83 CK-MB (CK-2) 2.38 Troponin I 0.082 NT-Pro-B Natriuret Pep 08/02/17 08:56 Creatine Kinase CK-MB (CK-2) 2.77 Troponin I 0.067 NT-Pro-B Natriuret Pep Impressions: Chest/Abdomen CTA 08/02/17 00:00 IMPRESSION: 1. No pulmonary emboli. 2. Cardiomegaly. Dilated main pulmonary artery, may be seen with pulmonary arterial hypertension. Reflux of intravenous contrast into the IVC and the hepatic veins, suggestive of right heart failure. Irregular ulcerative plaque in the descending thoracic aorta. 3. Heterogeneous mass at the right lower lobe, worrisome for malignancy. Right hilar and mediastinal adenopathy. Further evaluation with PET/ CT recommended. 4. Bilateral pleural effusions, right more than left. 5. Bilateral airspace opacities, may represent atelectasis or pneumonia. 6. Emphysema. 7. Small abdominal ascites. Diffuse subcutaneous edema. Thoracentesis Ultrasound 08/02/17 18:14 IMPRESSION: SUCCESSFUL THORACENTESIS USING ULTRASOUND GUIDANCE. Chest X-Ray 08/03/17 14:25 IMPRESSION: 1. Stable central vascular access catheter. 2. Status post thoracentesis without evidence of re- accumulation or pneumothorax. Qualifiers PATEINT BEING DISCHARGED WITH ANY OF THE FOLLOWING DIAGNOSIS?: Heart Failure [place] Pt discharged ACEI/ARBS?: No Reason(s) for not prescribing ACEI/ARBS:: Hospice Care HF Pt being discharged on ACEI for LVEF less than 40%?: No Reason(s) for not prescribing ACEI:: Hospice Care HF Pt being discharged on ARBS for LVEF less than 40%?: No Reason(s) for not prescribing ARBS:: Hospice Care Reason(s) for not prescribing evidence-based Beta Maria Isabel:: Hospice Care Plan Discharge Plan: Discharge to home hospice with [facility] agency.
== END 2017-08-13 14:45 | disposition hospice, home (50) | DRG 293 ==
LOC: 4S 16:51
PROVIDERS: ADMIT Internal Medicine Geriatric Medicine; ATTEND Internal Medicine Geriatric Medicine
PROC: 05HM33Z Insertion of Infusion Device into Right Internal Jugular Vein, Percutaneous Approach (ICD-10-PCS; 2017-08-02)
PROC: 0W993ZX Drainage of Right Pleural Cavity, Percutaneous Approach, Diagnostic (ICD-10-PCS; principal; 2017-08-03)
PROC: 05HM33Z Insertion of Infusion Device into Right Internal Jugular Vein, Percutaneous Approach (ICD-10-PCS; 2017-08-05)
DX: I11.0 Hypertensive heart disease with heart failure (principal); I50.21 Acute systolic (congestive) heart failure; J44.9 Chronic obstructive pulmonary disease, unspecified; R09.02 Hypoxemia; R91.8 Other nonspecific abnormal finding of lung field; I10 Essential (primary) hypertension; E78.5 Hyperlipidemia, unspecified; M19.90 Unspecified osteoarthritis, unspecified site; F03.90 Unspecified dementia, unspecified severity, without behavioral disturbance, psychotic disturbance, mood disturbance, and anxiety; Z66 Do not resuscitate; Z79.899 Other long term (current) drug therapy; Z87.891 Personal history of nicotine dependence
CPT/HCPCS: 32555; 36415; 71010; 71275; 80053; 82042; 82550; 82553; 82945; 83615; 83880; 84157; 84484; 85025; 85610; 85730; 87070; 87075; 87205; 88305; 89050; 93005; 93010; 93306; 94640; 94660; C1751; J0692; J1630; J1642; J1650; J1940; J1956; J2001; J2920; J2930; J3490; J7512; J7620